=== PATIENT | female | born 1950 | race Caucasian/White ===

== ENCOUNTER → 2017-11-02 | Outpatient (CLI) | payer OTHER ==
[~2017-11-02] MED LIST: ACE3 PO; AML5; AMLO-101 PO; CYC10 PO; DIPH-740 PO; GAB300 PO; HCTZ25 PO; HYDR12.561 PO; LIS10 PO; LIS20 PO; LORA0.5T11 GT; MET50 PO; METO25TA91 PO; MYLL PO; OMEP-218 PO; ONDA4TAB PO; OXY40 PO; OXYC-944 PO; OXYIR PO; PAN40 PO; PREG25 PO; PRO25S PR; TIZ4 PO; VEN375 PO; ZOLP-350 PO
== END ==
LOC: LAB 12:58
PROVIDERS: ATTEND Specialist
DX: F11.20 Opioid dependence, uncomplicated (principal)
CPT/HCPCS: 80305

== ENCOUNTER → 2018-02-22 | Outpatient (CLI) | payer MEDICARE, OTHER ==
[~2018-02-22] MED LIST changes: +DIPH-741 PO; +DIPH0.5D12 IM; +DOCU100T19 PO; +DULO60CA7 PO; +FAMO20TA28 PO; +GABA-549 PO; +MAGN400T36 PO; +METO50TA19 PO; +PNEU0.5D3 IM; +SPIR25TA78 PO
[2018-02-22 15:53] LABS: PLATELET COUNT, AUTOMATED 223 K/uL (150-450)
== END ==
LOC: LAB 15:20
PROVIDERS: ATTEND Emergency Medicine
DX: I10 Essential (primary) hypertension (principal)
CPT/HCPCS: 36415; 82040; 82247; 82310; 82374; 82435; 82465; 82565; 82947; 83718; 84075; 84132; 84155; 84295; 84450; 84460; 84478; 84520; 85025

== ENCOUNTER → 2018-03-16 | Outpatient (CLI) | payer MEDICARE, OTHER ==
--- NOTE | 2018-03-16 15:56 | RADIOLOGY IMAGING REPORT ---
FACILITY: [facility] PATIENT NAME: PARVEEN MENDOZA : [id number] MR: [id number] V: [id number] EXAM DATE: ORDERING PHYSICIAN: JOSE SALGADO TECHNOLOGIST: Consuelo Lucas PROCEDURE:BILATERAL DIGITAL SCREENING MAMMOGRAM WITH CAD ASSISTED INTERPRETATION & 3D TOMOSYNTHESIS COMPARISON:This is the patient's baseline mammogram. INDICATIONS:breast cancer screening FINDINGS: Moderately dense fibroglandular tissue is seen throughout the breasts. There is no evidence of malignant appearing mass, malignant appearing calcifications or other secondary sign of malignancy in either breast. A pacemaker battery pack projects along the upper Left chest wall on the Left MLO view. DIAGNOSTIC CATEGORY 1--NEGATIVE. RECOMMENDATIONS: ROUTINE MAMMOGRAM AND CLINICAL EVALUATION. IMPRESSION: BIRADS 1: Negative. No significant abnormality is seen. Dictated by: Chelsea Cosme M.D. on 03/16/2018 at 15:38 Transcribed by: JOCY on 03/16/2018 at 15:51 Approved by: Chelsea Cosme M.D. on 03/16/2018 at 15:55 [facility]
--- NOTE | 2018-03-16 16:18 | RADIOLOGY IMAGING REPORT ---
[place] [facility] [place] NAME: Beata Langley : 1950 MR: [id number] V: [id number] EXAM DATE: ORDERING PHYSICIAN: JOSE SALGADO TECHNOLOGIST: Location: [facility] [place] Patient: Beata Langley : 1950 Visit/Account:[id number] Date of Sevice: 03/16/2018 DEXA Scan Clinical history: Asymptomatic postmenopausal estrogen deficiency. Comparison: None available. LUMBAR SPINE: The bone mineral density (BMD) measured from L1-L4 correlates with a Z-score 0.2 and a T-score of -1 which is Normal as defined by the World Health Organization. The corresponding risk of fracture in t he lumbar spine is 2 times increased compared with a young adult reference population. HIP: Bone mineral density (BMD) measured in the Left total hip region correlates with a Z-score 0.8 and a T-score of -0.2 which is Normal as defined by the World Health Organization. The corresponding risk of fracture in the hip is Not increased compared with a young adult reference population. T score l eft femoral neck -1 Bone mineral density (BMD) measured in the Femoral Neck region measures 0.899 g/cm2. Impression: 1. Lumbar spine: Normal. 2. Left Hip: Normal. 3. Femoral Neck: Bone Mineral Density is 0.899 g/cm2 The next DEXA scan of this patient should include the following sites: L1-L4 and the left hip. FRAX? WHO Fracture Risk Assessment Tool link: <http://www.shef.ac.uk/FRAX/tool.jsp?locationValue=9> PLEASE NOTE: 1) The World Health Organization defines low BMD as follows: T-score Normal > -1 Osteopenia < -1 and > -2.5 Osteoporosis < -2.5 without fractures Established osteoporosis < -2.5 with fractures 2) In general, you may wish to consider: Diagnosis Treatment Follow-up DEXA Normal BMD Prevention 2-3 years Osteopenia Prevention/therapy 1-2 years Osteoporosis Therapy Yearly 3) Fracture risk estimated from the T-score is more accurate for vertebral fractures (often spontane ous) than for hip fractures. Report Dictated By: Chelsea Cosme MD at 03/16/2018 4:13 PM Report E-Signed By: Chelsea Cosme MD at 03/16/2018 4:14 PM WSN:[email or web address]
== END ==
LOC: MAMO 01:23
PROVIDERS: ATTEND Emergency Medicine
DX: Z13.820 Encounter for screening for osteoporosis (principal); Z12.31 Encounter for screening mammogram for malignant neoplasm of breast; Z78.0 Asymptomatic menopausal state; Z95.0 Presence of cardiac pacemaker
CPT/HCPCS: 77063; 77067; 77080

== ENCOUNTER → 2018-04-15 | Outpatient (CLI) | payer MEDICARE ==
--- NOTE | 2018-04-15 12:19 | RADIOLOGY IMAGING REPORT ---
FACILITY: [facility] - [place] PATIENT NAME: Beata Langley : 1950 MR: [id number] V: [id number] EXAM DATE: ORDERING PHYSICIAN: JOSE SALGADO TECHNOLOGIST: Location: [facility] [place] Patient: Beata Langley : 1950 Visit/Account:[id number] Date of Sevice: 04/15/[address] scan without contrast HISTORY: Arachnoid cyst COMPARISONS: April 08, 2008 TECHNIQUE: Non-contrast head CT was performed with sagittal and coronal reformations. One of the following dose optimization techniques was utilized in the performance of this exam: autom ated exposure control; adjustment of the mA and/or kV according to patient size; or use of iterative reconstruction technique. Specific details can be referenced in the facility's radiology CT exam ope rational policy. FINDINGS: There is no intracranial hemorrhage, hydrocephalus or midline shift. The basal cisterns, phipps-white differentiation, and convexity sulci are maintained. Normal orbital soft tissues. Benign arachnoid cyst in the right lateral posterior fossa has slightly increased in transverse dimen mandi now measuring 1.2 cm, previously 1 cm, axial image 28. This measures 3.3 cm craniocaudad by 4.1 cm AP. Evaluation for change in size in the craniocaudad and AP planes is limited given lack of coron al or sagittal reformations on prior. The mastoid air cells are clear. The paranasal sinuses are clear. Chronic benign osseous protuberanc e emanating off the right parietal bone is unchanged. IMPRESSION: 1. No acute intracranial abnormality. 2. Benign arachnoid cyst in the right lateral posterior fossa has increased in size in the transverse dimension now measuring 1.2 cm, previously 1 cm. This exerts slight mass effect on the adjacent righ t cerebellum which has increased. The arachnoid cyst measures 3.3 cm craniocaudad by 4.1 cm AP dimension. Evaluation for interval cool ge in these dimensions is limited given lack of coronal or sagittal reformations on prior. The predom inant change in size of the cyst appears to be in the transverse dimension comparing axial images. Report Dictated By: Kash Linn MD at 04/15/2018 12:09 PM Report E-Signed By: Kash Linn MD at 04/15/2018 12:16 PM WSN:[email or web address]
== END ==
LOC: CT 07:03
PROVIDERS: ATTEND Emergency Medicine
DX: Z01.812 Encounter for preprocedural laboratory examination (principal); G93.0 Cerebral cysts
CPT/HCPCS: 36415; 70450; 82565

== ENCOUNTER → 2018-04-15 | Outpatient (CLI) | payer MEDICARE | LOC: LAB 10:49 | PROVIDERS: ATTEND Specialist | DX: F11.20 Opioid dependence, uncomplicated (principal) | CPT/HCPCS: 80305 ==

== ENCOUNTER → 2018-04-20 | Outpatient (CLI) | payer MEDICARE, OTHER ==
[~2018-04-20] MED LIST changes: -SPIR25TA78 PO; +SPIR25TA80 PO
[2018-04-20 16:02] LABS: PLATELET COUNT, AUTOMATED 262 K/uL (150-450)
--- NOTE | 2018-04-20 17:17 | RADIOLOGY IMAGING REPORT ---
FACILITY: [facility] PATIENT NAME: Beata Langley : 1950 MR: [id number] V: [id number] EXAM DATE: ORDERING PHYSICIAN: JOSE SALGADO TECHNOLOGIST: Location: [facility] - [place] Patient: Beata Langley : 1950 Visit/Account:[id number] Date of Sevice: 04/20/2018 EXAMINATION: Renal Ultrasound HISTORY: CKD. COMPARISON: None. FINDINGS: Right kidney: There is increased echogenicity of the renal cortical parenchyma, suggesting medical re nal disease. The right kidney measures slightly small in size at 7.7 cm in length. No cortical thinni ng. No hydronephrosis. Left kidney: There is increased echogenicity of the renal cortical parenchyma, suggesting medical re nal disease. The left kidney measures 8.4 cm in length. No cortical thinning or hydronephrosis. Bladder: Moderately well distended and morphologically unremarkable. Bilateral ureteral jets are vis ualized. Vessels: The segmentally visualized abdominal aorta and IVC are patent. IMPRESSION: 1. Both kidneys appear mildly echogenic, compatible with medical renal disease. 2. No hydronephrosis. 3. Kidneys measure slightly small in size, measuring 7.7 cm in length on the right and 8.4 cm in karen th on the left. Report Dictated By: Jamie Padilla MD at 04/20/2018 5:08 PM Report E-Signed By: Jamie Padilla MD at 04/20/2018 5:14 PM WSN:[id number]
== END ==
LOC: LAB 15:39
PROVIDERS: ATTEND Emergency Medicine
DX: R55 Syncope and collapse (principal); N18.9 Chronic kidney disease, unspecified; D64.9 Anemia, unspecified
CPT/HCPCS: 36415; 76705; 81001; 82040; 82247; 82310; 82374; 82435; 82565; 82947; 83540; 83550; 84075; 84132; 84155; 84295; 84443; 84450; 84460; 84484; 84520; 85025; 85379

== ENCOUNTER → 2018-04-20 | Outpatient (CLI) | payer MEDICARE, OTHER ==
--- NOTE | 2018-04-20 19:08 | EKG ---
[place] [facility] [place] NAME: PARVEEN MENDOZA : [id number] MR: [id number] V: [id number] EXAM DATE: ORDERING PHYSICIAN: JOSE SALGADO TECHNOLOGIST: WILBER Test Reason : SYNCOPE Blood Pressure : / mmHG Vent. Rate : 071 BPM Atrial Rate : 071 BPM P-R Int : 354 ms QRS Dur : 078 ms QT Int : 462 ms P-R-T Axes : -29 000 083 degrees QTc Int : 502 ms Atrial-paced rhythm with prolonged AV conduction Low voltage QRS Prolonged QT Abnormal ECG When compared with ECG of 05-AUG-2016 19:05, Previous ECG has undetermined rhythm, needs review T wave inversion no longer evident in Anterior leads Referred By: Confirmed By:
== END ==
LOC: RESP 15:41
PROVIDERS: ATTEND Emergency Medicine
DX: Z02.9 Encounter for administrative examinations, unspecified (principal)

== ENCOUNTER → 2018-04-25 | Outpatient (CLI) | payer MEDICARE | LOC: LAB 13:30 | PROVIDERS: ATTEND Emergency Medicine | DX: N18.9 Chronic kidney disease, unspecified (principal) | CPT/HCPCS: 36415; 82310; 82374; 82435; 82565; 82947; 84132; 84295; 84520 ==

== ENCOUNTER → 2018-06-14 | Outpatient (CLI) | payer MEDICARE, OTHER ==
[~2018-06-14] MED LIST changes: +ROSU10TA5 PO
--- NOTE | 2018-06-14 16:42 | RADIOLOGY IMAGING REPORT ---
FACILITY: [facility] PATIENT NAME: Beata Langley : 1950 MR: [id number] V: [id number] EXAM DATE: ORDERING PHYSICIAN: ALEJANDRO HAGAN TECHNOLOGIST: Location: [facility] Patient: Beata Langley : 1950 Visit/Account:[id number] Date of Sevice: 06/14/2018 ADDENDUM #1 A message was left for ALEJANDRO HAGAN at 06/14/2018 4:52 PM. Report Dictated By: Chelsea Cosme MD at 06/14/2018 4:52 PM Report E-Signed By: Chelsea Cosme MD at 06/14/2018 4:52 PM ORIGINAL REPORT Exam type: ANKLE 3 VIEW MIN LEFT History: Left lateral ankle pain fell on June 11, 2018 Comparison: None Findings: There is a very subtle oblique lucency traversing the distal metaphysis of the left fibula. This cou ld represent superimposed shadow versus a nondisplaced fracture. Ankle mortise appears intact. Ther e is moderate soft tissue swelling over the lateral aspect left ankle IMPRESSION: 1. Subtle oblique lucency traversing the distal metaphysis left fibula which could represent a super imposed shadow versus a nondisplaced fracture. There is moderate soft tissue swelling over the later al aspect of the ankle Report Dictated By: Chelsea Cosme MD at 06/14/2018 4:36 PM Report E-Signed By: Chelsea Cosme MD at 06/14/2018 4:38 PM WSN:[email or web address]
== END ==
LOC: RAD 15:54
PROVIDERS: ATTEND Nurse Practitioner Primary Care
DX: M25.472 Effusion, left ankle (principal); R93.6 Abnormal findings on diagnostic imaging of limbs

== ENCOUNTER → 2018-08-12 | Outpatient (CLI) | payer MEDICARE ==
--- NOTE | 2018-08-12 15:50 | RADIOLOGY IMAGING REPORT ---
FACILITY: [facility] - [place] PATIENT NAME: Beata Langley : 1950 MR: [id number] V: [id number] EXAM DATE: ORDERING PHYSICIAN: QASIM RESTREPO TECHNOLOGIST: Location: [facility] Patient: Beata Langley : 1950 Visit/Account:[id number] Date of Sevice: 08/12/2018 EXAMINATION: Renal ultrasound 08/12/2018 1:00 PM HISTORY: C KV. COMPARISON STUDIES: none FINDINGS: Kidneys: Right kidney- 8.1 x 4.8 x 4.0 cm, normal parenchymal thickness and echogenicity for age. Left kidney- 8.0 x 4.4 x 4.4 cm, normal parenchymal thickness and echogenicity for age. Uniform and symmetric blood flow in each kidney by Doppler ultrasound. Hydronephrosis: none Bladder: Under 4 mL in the bladder post void. Abdominal aorta and IVC: Patent by Doppler ultrasound IMPRESSION: 1. Echogenicity of renal cortex is probably within normal range for age although is increased and ma y reflect chronic medical renal disease. 2. Minimal postvoid residual in the bladder of questionable significance. Report Dictated By: Jaylen Childers MD at 08/12/2018 3:43 PM Report E-Signed By: Jaylen Childers MD at 08/12/2018 3:45 PM WSN:[email or web address]
== END ==
LOC: US 08-09 01:26
PROVIDERS: ATTEND Internal Medicine Nephrology
DX: N18.3 Chronic kidney disease, stage 3 (moderate) (principal)
CPT/HCPCS: 76705

== ENCOUNTER → 2018-09-12 | Outpatient (CLI) | payer MEDICARE ==
[2018-09-12 16:34] LABS: PLATELET COUNT, AUTOMATED 255 K/uL (150-450)
== END ==
LOC: LAB 15:47
PROVIDERS: ATTEND Internal Medicine Nephrology
DX: Z13.9 Encounter for screening, unspecified (principal); N18.3 Chronic kidney disease, stage 3 (moderate); D64.9 Anemia, unspecified
CPT/HCPCS: 36415; 82040; 82247; 82310; 82374; 82435; 82550; 82565; 82570; 82728; 82947; 83540; 83550; 83970; 84075; 84100; 84132; 84155; 84156; 84295; 84443; 84450; 84460; 84520; 85025

== ENCOUNTER 2018-10-27 12:48 | Outpatient (RCR) | payer MEDICARE ==
[2018-09-29] MEDS: IRON SUCROSE 100 MG/5 ML VIAL IVP PRN (13:36)
[2018-09-29] MEDS: NS(*) 0.9% 100 ML BAG 100 ML IVPB PRN (13:37)
[2018-09-29] MEDS: LIDOCAINE/SOD BICARB 8.4% SYR ID PRN (13:40)
[2018-09-29 13:48] VITALS: BP 120/90
[2018-09-29 14:28] VITALS: BP 111/80
[2018-10-06] MEDS: LIDOCAINE/SOD BICARB 8.4% SYR ID PRN (12:54)
[2018-10-06] MEDS: IRON SUCROSE 100 MG/5 ML VIAL IVP PRN (12:55)
[2018-10-06] MEDS: NS(*) 0.9% 100 ML BAG 100 ML IVPB PRN (12:55)
[2018-10-06 13:03] VITALS: BP 122/87
[2018-10-06 13:31] VITALS: BP 121/72
[2018-10-13 13:11] VITALS: BP 119/95
[2018-10-13] MEDS: NS(*) 0.9% 100 ML BAG 100 ML IVPB PRN (13:28)
[2018-10-13] MEDS: IRON SUCROSE 100 MG/5 ML VIAL IVP PRN (13:28)
[2018-10-13] MEDS: LIDOCAINE/SOD BICARB 8.4% SYR ID PRN (13:28)
[2018-10-13 13:51] VITALS: BP 101/74
[2018-10-20 13:00] VITALS: BP 125/96
[2018-10-20] MEDS: NS(*) 0.9% 100 ML BAG 100 ML IVPB PRN (13:22)
[2018-10-20] MEDS: LIDOCAINE/SOD BICARB 8.4% SYR ID PRN (13:22)
[2018-10-20 13:45] VITALS: BP 124/72
[~2018-10-27 12:48] MED LIST changes: +DEXTROSE 5%(*) 100 ML BAG 100 ML IVPB PRN; +IRON SUCROSE 100 MG/5 ML VIAL 200 MG in NS(*) 0.9% 100 ML BAG 100 ML IVPB ONE
[2018-10-27] MEDS: LIDOCAINE/SOD BICARB 8.4% SYR ID PRN (13:19)
[2018-10-27] MEDS: NS(*) 0.9% 100 ML BAG 100 ML IVPB PRN (13:19)
[2018-10-27] MEDS: IRON SUCROSE 100 MG/5 ML VIAL IVP PRN (13:19)
[2018-10-27 13:23] VITALS: BP 180/120
[2018-10-27 13:44] VITALS: BP 200/110
[2018-11-09] MEDS ORDERED: LOSA25TA57 PO (14:43)
== END 2018-11-09 09:32 | disposition home or self-care (01) ==
LOC: SPU 12:48
PROVIDERS: ATTEND Internal Medicine Nephrology
DX: D50.9 Iron deficiency anemia, unspecified (principal); N18.3 Chronic kidney disease, stage 3 (moderate); G90.9 Disorder of the autonomic nervous system, unspecified; E87.1 Hypo-osmolality and hyponatremia; I12.9 Hypertensive chronic kidney disease with stage 1 through stage 4 chronic kidney disease, or unspecified chronic kidney disease
CPT/HCPCS: 96365; 96374; J1756; J7050

== ENCOUNTER → 2018-11-09 | Outpatient (CLI) | payer MEDICARE, OTHER ==
[~2018-11-09] MED LIST changes: -DEXTROSE 5%(*) 100 ML BAG 100 ML IVPB PRN; -IRON SUCROSE 100 MG/5 ML VIAL 200 MG in NS(*) 0.9% 100 ML BAG 100 ML IVPB ONE; +LOSA25TA57 PO
[2018-11-09 15:09] LABS: PLATELET COUNT, AUTOMATED 213 K/uL (150-450)
== END ==
LOC: LAB 14:39
PROVIDERS: ATTEND Emergency Medicine
DX: D64.9 Anemia, unspecified (principal); N18.9 Chronic kidney disease, unspecified
CPT/HCPCS: 36415; 82310; 82374; 82435; 82465; 82565; 82607; 82728; 82947; 83540; 83550; 83718; 84132; 84295; 84478; 84520; 85025

== ENCOUNTER → 2018-11-10 | Outpatient (CLI) | payer MEDICARE | LOC: LAB 10:11 | PROVIDERS: ATTEND Emergency Medicine | DX: E87.5 Hyperkalemia (principal) | CPT/HCPCS: 36415; 82310; 82374; 82435; 82565; 82947; 84132; 84295; 84520 ==

== ENCOUNTER 2019-01-28 09:44 | Emergency (ER) | payer MEDICARE ==
[~2019-01-28 09:44] MED LIST changes: -OXYC-823 PO
--- NOTE | 2019-01-28 09:50 | ER Report ---
History and Physical Time Seen By MD: 09:49 HPI/ROS CHIEF COMPLAINT: Fall, neck pain HISTORY OF PRESENT ILLNESS: Patient is a 69-year-old female here status post fall last night at approximately 2245. Patient reportedly fell off the toilet and had an unknown down time. Patient does complain of lateral neck pain, occipital tenderness. Patient is neurovascularly intact in all extremities at time of reevaluation with good strength, sensory neural examination. Patient does have a history significant for "pots" in which the patient has intermittent syncopal episodes, fluctuating hypotension and hypertension which is her baseline. Patient is afebrile, otherwise hemodynamically stable at time of evaluation. Cervical collar in place. REVIEW OF SYSTEMS: Constitutional: No fever, no chills. Eyes: No discharge. No diplopia ENT: No sore throat. No loose dentition. + Midline and left lateral cervical tenderness Cardiovascular: No chest pain, no palpitations. Respiratory: No cough, no shortness of breath. Gastrointestinal: No abdominal pain, no vomiting. Genitourinary: No hematuria. Musculoskeletal: No back pain. Skin: No rashes. Neurological: + headache. No focal neurological deficits and extremities, paresthesias Allergies: Coded Allergies: Soap (Verified Allergy, Unknown, 08/05/16) povidone-iodine (Verified Allergy, Unknown, 08/05/16) Home Meds Active Scripts Rosuvastatin Calcium (Rosuvastatin Calcium) 10 Mg Tablet, 1 TAB PO DAILY, #30 TAB 11 Refills Prov:JOSE SALGADO MD 05/10/18 Reported Medications Oxycodone Hcl (OXYCONTIN) 10 Mg Tab.er.12h, 10 MG PO Q3-4H, TAB 01/28/19 Cyanocobalamin (Vitamin B-12) (Vitamin B-12) 1,000 Mcg Capsule, 1 CAP PO DAILY 11/17/18 Losartan Potassium (LOSARTAN POTASSIUM) 25 Mg Tablet, 25 MG PO QDAY 11/09/18 Magnesium Oxide (MAGNESIUM OXIDE) 400 Mg Tablet, 1.5 TAB PO DAILY 02/22/18 Diphenhydramine Hcl (BENADRYL ALLERGY) 25 Mg Tablet, 25 MG PO Q4H PRN for PRN, TAB 02/22/18 Docusate Sodium (STOOL SOFTENER) 100 Mg Tablet, 1-2 TAB PO DAILY 02/22/18 Spironolactone (SPIRONOLACTONE) 25 Mg Tablet, 25 MG PO DAILY, TAB 02/22/18 Metoprolol Succinate (METOPROLOL SUCCINATE) 50 Mg Tab.er.24h, 1 TAB PO DAILY, TAB 02/22/18 Duloxetine HCl (Duloxetine HCl) 60 Mg Capsule.dr, 1 CAP PO DAILY 02/22/18 Gabapentin (GABAPENTIN) 300 Mg Capsule, 300 MG PO TID, CAPSULE 02/22/18 Pantoprazole Sod (Protonix) 40 Mg Tabec, 40 MG PO BID, 0 Refills 10/10/08 Tizanidine Hcl (Zanaflex) 4 Mg Tab, 4 MG PO QID 1 TAKE 4 TIMES DAILY NEEDED FOR MUSCLE SPASM 05/12/08 Discontinued Reported Medications Famotidine (PEPCID) 20 Mg Tablet, 20 MG PO QDAY PRN for PRN, #10 TAB 02/22/18 Hx Smoking: No Smoking Status: Never Smoker Constitutional Vital Sign - Last 24 Hours 01/28/19 09:48 Pulse 72 Resp 16 B/P (MAP) 147/106 Pulse Ox 96 O2 Delivery Room Air Physical Exam General Appearance: The patient is alert, has no immediate need for airway protection and no signs of toxicity. No acute distress Eyes: Pupils equal and round no pallor or injection. ENT, Mouth: Mucous membranes are moist. Respiratory: There are no retractions, lungs are clear to auscultation. Cardiovascular: Regular rate and rhythm. Gastrointestinal: Abdomen is soft and non tender, no masses, bowel sounds normal. Neurological: No focal neurological deficits, moving all extremities with good strength, sensory exam intact, alert and oriented Skin: Warm and dry, no rashes. Musculoskeletal: Neck is supple non tender. Extremities are nontender, nonswollen and have full range of motion. DIFFERENTIAL DIAGNOSIS: After history and physical exam differential diagnosis was considered for concussion, contusion, musculoskeletal strain, fracture, dislocation Medical Decision Making Data Points Result Diagram: 01/28/1955 01/28/1955 Laboratory Hematology Test 01/28/19 09:55 Red Blood Count 4.65 M/uL (4.17-5.56) Mean Corpuscular Volume 94.0 fL (80.0-96.0) Mean Corpuscular Hemoglobin 31.6 pg (26.0-33.0) Mean Corpuscular Hemoglobin Concent 33.6 g/dL (32.0-36.0) Red Cell Distribution Width 13.6 % (11.5-14.5) Mean Platelet Volume 7.3 fL (7.2-11.1) Neutrophils (%) (Auto) 57.0 % (39.4-72.5) Lymphocytes (%) (Auto) 29.8 % (17.6-49.6) Monocytes (%) (Auto) 9.4 % (4.1-12.4) Eosinophils (%) (Auto) 2.5 % (0.4-6.7) Basophils (%) (Auto) 1.3 % (0.3-1.4) Nucleated RBC Relative Count (auto) 0.1 /100WBC Neutrophils # (Auto) 3.6 K/uL (2.0-7.4) Lymphocytes # (Auto) 1.9 K/uL (1.3-3.6) Monocytes # (Auto) 0.6 K/uL (0.3-1.0) Eosinophils # (Auto) 0.2 K/uL (0.0-0.5) Basophils # (Auto) 0.1 K/uL (0.0-0.1) Nucleated RBC Absolute Count (auto) 0.00 K/uL Sodium Level 128 mmol/L (137-145) Potassium Level 5.8 mmol/L (3.5-5.0) Chloride Level 95 mmol/L (98-107) Carbon Dioxide Level 25 mmol/L (22-31) Blood Urea Nitrogen 34 mg/dl (7-18) Creatinine 2.70 mg/dl (0.52-1.04) Glomerular Filtration Rate Calc 17.5 Random Glucose 98 mg/dl (75-110) Calcium Level 9.0 mg/dl (8.4-10.2) Total Bilirubin 0.7 mg/dl (0.2-1.3) Aspartate Amino Transf (AST/SGOT) 45 U/L (0-35) Alanine Aminotransferase (ALT/SGPT) 30 U/L (0-56) Alkaline Phosphatase 78 U/L (0-126) B-Type Natriuretic Peptide 129 pg/ml (0-100) Total Protein 7.2 g/dl (6.3-8.2) Albumin 4.3 g/dl (3.5-5.0) Chemistry Test 01/28/19 09:55 White Blood Count 6.2 k/uL (4.5-11.0) Red Blood Count 4.65 M/uL (4.17-5.56) Hemoglobin 14.7 g/dL (12.0-16.0) Hematocrit 43.7 % (34.0-47.0) Mean Corpuscular Volume 94.0 fL (80.0-96.0) Mean Corpuscular Hemoglobin 31.6 pg (26.0-33.0) Mean Corpuscular Hemoglobin Concent 33.6 g/dL (32.0-36.0) Red Cell Distribution Width 13.6 % (11.5-14.5) Platelet Count 178 K/uL (150-450) Mean Platelet Volume 7.3 fL (7.2-11.1) Neutrophils (%) (Auto) 57.0 % (39.4-72.5) Lymphocytes (%) (Auto) 29.8 % (17.6-49.6) Monocytes (%) (Auto) 9.4 % (4.1-12.4) Eosinophils (%) (Auto) 2.5 % (0.4-6.7) Basophils (%) (Auto) 1.3 % (0.3-1.4) Nucleated RBC Relative Count (auto) 0.1 /100WBC Neutrophils # (Auto) 3.6 K/uL (2.0-7.4) Lymphocytes # (Auto) 1.9 K/uL (1.3-3.6) Monocytes # (Auto) 0.6 K/uL (0.3-1.0) Eosinophils # (Auto) 0.2 K/uL (0.0-0.5) Basophils # (Auto) 0.1 K/uL (0.0-0.1) Nucleated RBC Absolute Count (auto) 0.00 K/uL Glomerular Filtration Rate Calc 17.5 Calcium Level 9.0 mg/dl (8.4-10.2) Total Bilirubin 0.7 mg/dl (0.2-1.3) Aspartate Amino Transf (AST/SGOT) 45 U/L (0-35) Alanine Aminotransferase (ALT/SGPT) 30 U/L (0-56) Alkaline Phosphatase 78 U/L (0-126) B-Type Natriuretic Peptide 129 pg/ml (0-100) Total Protein 7.2 g/dl (6.3-8.2) Albumin 4.3 g/dl (3.5-5.0) EKG/Imaging EKG Interpretation PATIENT NAME: PARVEEN MENDOZA : [id number] MR: [id number] V: [id number] EXAM DATE: ORDERING PHYSICIAN: TATIANNA VALENZUELA TECHNOLOGIST: YOBANY Veloz Reason : SUNCOPE Blood Pressure : / mmHG Vent. Rate : 140 BPM Atrial Rate : 070 BPM P-R Int : 000 ms QRS Dur : 168 ms QT Int : 290 ms P-R-T Axes : 000 056 -73 degrees QTc Int : 442 ms Demand pacemaker, interpretation is based on intrinsic rhythm Wide QRS tachycardia with premature supraventricular complexes and premature ventricular complexes or fusion complexes Left bundle branch block Abnormal ECG When compared with ECG of 20-APR-2018 14:19, Wide QRS tachycardia has replaced Electronic atrial pacemaker Vent. rate has increased BY 69 BPM Referred By: BIANCA Confirmed By: Imaging CT Head without contrast and CT Cervical spine: Indication: Fall Comparison: 04/15/2018 Technique: CT head: Axial CT images were obtained through the brain from the skull base to the vertex without administration of IV contrast. Reformatted coronal and sagittal images were also obtained. Technique: CT cervical spine: Axial CT imaging of the cervical spine was performed. 2-D sagittal and coronal CT reformats were also obtained. One of the following dose optimization techniques was utilized in the performance of this exam: automated exposure control; adjustment of the mA and/or kV according to the patient's size; or use of an iterative reconstruction technique. Specific details can be referenced in the facility's radiology CT exam operational policy. FINDINGS: CT head: No evidence of mass, mass effect, or midline shift. No acute intracranial hemorrhage or acute territorial infarction. There are mild periventricular deep white matter chronic ischemic changes. The skull is intact. The visualized paranasal sinuses and mastoid air cells are clear. CT cervical spine: There is a fracture involving the ring of the C2 vertebral body. Along the left aspect of the C2 vertebral body there is a fracture through the uncinate process extending into the lamina with mild displacement present. On the right side of the vertebral body, there is a fracture present through the transverse foramen. Within the spine canal along the left epidural space, spinal stimulators are noted. The prevertebral soft tissues appear unremarkable. The vertebral body heights are well maintained. Disc spaces appear unremarkable. IMPRESSION: 1. No acute intracranial abnormality. 2. C2 fracture involving the posterior ring with mild displacement of the left uncinate process and right transverse foramen ED Course/Re-evaluation ED Course Patient is a 69-year-old female here with complaints of a fall while in the bathroom last night at approximately 2245. Patient does have a history of intermittent syncopal episodes which she attributes to "pots". Patient was immobilized in a cervical collar at time of evaluation. CT imaging of the head and C-spine was completed and identified a C2 posterior ring fracture through the uncinate process. Patient was also found to have worsening acute on chronic CKD. As compared to a month ago, creatinine previously was 2 and is now 2.7 likely prerenal etiology. Patient was given a liter normal saline for hydration. I discussed the patient with [facility] trauma surgeon Dr. Clarke who agreed to transfer. Patient was hemodynamically stable at time of transport. Decision to Disposition Date: Jan 28, 2019 Decision to Disposition Time: 11:37 Depart Departure Latest Vital Signs Vital Signs Date Time Temp Pulse Resp B/P (MAP) Pulse Ox O2 Delivery O2 Flow Rate FiO2 01/28/19 09:48 72 16 147/106 96 Room Air Impression: Primary Impression: Closed cervical spine fracture Additional Impressions: Syncope Acute renal failure Condition: Improved Disposition: HOME OR SELF-CARE Referrals: JOSE SALGADO MD (PCP) Problem Qualifiers TATIANNA VALENZUELA DO Jan 28, 2019 09:50
--- NOTE | 2019-01-28 10:06 | EKG ---
[facility] PATIENT NAME: PARVEEN MENDOZA : [id number] MR: [id number] V: [id number] EXAM DATE: ORDERING PHYSICIAN: TATIANNA VALENZUELA TECHNOLOGIST: YOBANY Veloz Reason : SUNCOPE Blood Pressure : / mmHG Vent. Rate : 140 BPM Atrial Rate : 070 BPM P-R Int : 000 ms QRS Dur : 168 ms QT Int : 290 ms P-R-T Axes : 000 056 -73 degrees QTc Int : 442 ms Demand pacemaker, interpretation is based on intrinsic rhythm Prolonged AV conduction Abnormal ECG When compared with ECG of 20-APR-2018 14:19, Confirmed by LATASHA COTTON ([id number]) on 01/28/2019 2:38:58 PM Referred By: BIANCA Confirmed By:LATASHA COTTON
[2019-01-28 10:07] LABS: PLATELET COUNT, AUTOMATED 178 K/uL (150-450)
[2019-01-28] MEDS ORDERED: OXYC-823 PO (10:08)
[2019-01-28] MEDS ORDERED: NS(*) 0.9% 1000 ML BAG 1,000 ML IV ONE (10:20)
--- NOTE | 2019-01-28 10:48 | RADIOLOGY IMAGING REPORT ---
FACILITY: [facility] - [place] PATIENT NAME: Beata Langley : 1950 MR: [id number] V: [id number] EXAM DATE: ORDERING PHYSICIAN: TATIANNA VALENZUELA TECHNOLOGIST: Location: [facility] [place] Patient: Beata Langley : 1950 Visit/Account:[id number] Date of Sevice: 01/28/2019 CT Head without contrast and CT Cervical spine: Indication: Fall Comparison: 04/15/2018 Technique: CT head: Axial CT images were obtained through the brain from the skull base to the verte x without administration of IV contrast. Reformatted coronal and sagittal images were also obtained. Technique: CT cervical spine: Axial CT imaging of the cervical spine was performed. 2-D sagittal and coronal CT reformats were also obtained. One of the following dose optimization techniques was utilized in the performance of this exam: autom ated exposure control; adjustment of the mA and/or kV according to the patient's size; or use of an i terative reconstruction technique. Specific details can be referenced in the facility's radiology CT exam operational policy. FINDINGS: CT head: No evidence of mass, mass effect, or midline shift. No acute intracranial hemorrhage or acute territorial infarction. There are mild periventricular deep white matter chronic ischemic changes. The skull is intact. The visualized paranasal sinuses and mastoid air cells are clear. CT cervical spine: There is a fracture involving the ring of the C2 vertebral body. Along the left aspect of the C2 vert ebral body there is a fracture through the uncinate process extending into the lamina with mild displ acement present. On the right side of the vertebral body, there is a fracture present through the tra nsverse foramen. Within the spine canal along the left epidural space, spinal stimulators are noted. The prevertebral soft tissues appear unremarkable. The vertebral body heights are well maintained. Disc spaces appear unremarkable. IMPRESSION: 1. No acute intracranial abnormality. 2. C2 fracture involving the posterior ring with mild displacement of the left uncinate process and r ight transverse foramen Results were discussed with TATIANNA VALENZUELA at 01/28/2019 10:43 AM. Report Dictated By: Leon Shipley at 01/28/2019 10:32 AM Report E-Signed By: Leon Shipley at 01/28/2019 10:43 AM WSN:[id number]
--- NOTE | 2019-01-28 10:48 | RADIOLOGY IMAGING REPORT ---
FACILITY: [facility] - [place], [place] PATIENT NAME: Beata Langley : 1950 MR: [id number] V: [id number] EXAM DATE: ORDERING PHYSICIAN: TATIANNA VALENZUELA TECHNOLOGIST: Location: [facility] Patient: Beata Langley : 1950 Visit/Account:[id number] Date of Sevice: 01/28/2019 CT Head without contrast and CT Cervical spine: Indication: Fall Comparison: 04/15/2018 Technique: CT head: Axial CT images were obtained through the brain from the skull base to the verte x without administration of IV contrast. Reformatted coronal and sagittal images were also obtained. Technique: CT cervical spine: Axial CT imaging of the cervical spine was performed. 2-D sagittal and coronal CT reformats were also obtained. One of the following dose optimization techniques was utilized in the performance of this exam: autom ated exposure control; adjustment of the mA and/or kV according to the patient's size; or use of an i terative reconstruction technique. Specific details can be referenced in the facility's radiology CT exam operational policy. FINDINGS: CT head: No evidence of mass, mass effect, or midline shift. No acute intracranial hemorrhage or acute territorial infarction. There are mild periventricular deep white matter chronic ischemic changes. The skull is intact. The visualized paranasal sinuses and mastoid air cells are clear. CT cervical spine: There is a fracture involving the ring of the C2 vertebral body. Along the left aspect of the C2 vert ebral body there is a fracture through the uncinate process extending into the lamina with mild displ acement present. On the right side of the vertebral body, there is a fracture present through the tra nsverse foramen. Within the spine canal along the left epidural space, spinal stimulators are noted. The prevertebral soft tissues appear unremarkable. The vertebral body heights are well maintained. Disc spaces appear unremarkable. IMPRESSION: 1. No acute intracranial abnormality. 2. C2 fracture involving the posterior ring with mild displacement of the left uncinate process and r ight transverse foramen Results were discussed with TATIANNA VALENZUELA at 01/28/2019 10:43 AM. Report Dictated By: Leon Shipley at 01/28/2019 10:32 AM Report E-Signed By: Leon Shipley at 01/28/2019 10:43 AM WSN:[id number]
[2019-01-28 12:20] VITALS: BP 133/100
[2019-01-28] MEDS ORDERED: fentaNYL CITR 100 MCG/2 ML AMP IVP ONE (12:40)
== END 2019-01-28 12:55 | disposition short-term general hospital (02) ==
LOC: ER 10:01
DX: S12.100A Unspecified displaced fracture of second cervical vertebra, initial encounter for closed fracture (principal); N17.9 Acute kidney failure, unspecified; W18.11XA Fall from or off toilet without subsequent striking against object, initial encounter
CPT/HCPCS: 70450; 72125; 83880; 85025; 93005; 96361; 96374; 99285; J3010; J7030; 82040; 82247; 82310; 82374; 82435; 82565; 82947; 84075; 84132; 84155; 84295; 84450; 84460; 84520

== ENCOUNTER → 2019-01-28 | Outpatient (CLI) | payer MEDICARE ==
[~2019-01-28] MED LIST changes: +CYAN100058 PO; -DIPH0.5D12 IM; +DIPH0.5S2 IM; +OXYC-823 PO
== END ==
LOC: AMB 12:36
PROVIDERS: ATTEND Nurse Practitioner
DX: S12.100A Unspecified displaced fracture of second cervical vertebra, initial encounter for closed fracture (principal)
CPT/HCPCS: A0425; A0426

== ENCOUNTER → 2019-04-19 | Outpatient (CLI) | payer MEDICARE, OTHER ==
[~2019-04-19] MED LIST changes: +OXYC-823 PO
== END ==
LOC: LAB 14:50
PROVIDERS: ATTEND Emergency Medicine
DX: G90.9 Disorder of the autonomic nervous system, unspecified (principal); E53.8 Deficiency of other specified B group vitamins; I10 Essential (primary) hypertension
CPT/HCPCS: 36415; 81001; 82310; 82374; 82435; 82565; 82607; 82947; 83735; 84132; 84295; 84520

== ENCOUNTER → 2019-04-26 | Outpatient (CLI) | payer MEDICARE ==
[~2019-04-26] MED LIST changes: +CYAN250T15 PO
== END ==
LOC: RESP 01:09
PROVIDERS: ATTEND Emergency Medicine
DX: R55 Syncope and collapse (principal)
CPT/HCPCS: 95819

== ENCOUNTER → 2019-05-08 | Outpatient (CLI) | payer MEDICARE ==
--- NOTE | 2019-05-08 14:23 | RADIOLOGY IMAGING REPORT ---
FACILITY: [facility] - [place] PATIENT NAME: Beata Langley : 1950 MR: [id number] V: [id number] EXAM DATE: ORDERING PHYSICIAN: HENRIK HAGER TECHNOLOGIST: Location: [facility] - [place] Patient: Beata Langley : 1950 Visit/Account:[id number] Date of Sevice: 05/08/2019 3 views cervical spine Indication: Closed Nondisplaced fracture of C2. Comparison: CT cervical spine dated January 28, 2019. Findings: There is a nondisplaced anterior/inferior corner fracture of C2, retrospectively present and grossly unchanged. Fracture through the left aspect of the C2 vertebral body demonstrates new 2 mm distraction and one-2 mm inferior displacement of the fracture fragment. The right-sided fracture is not well seen. No acute fractures identified. The prevertebral soft tissues are within normal limits. The odontoid is unremarkable. The vertebral body heights are well maintained. One-2 mm anterolisthesis of C2 on C3, unchanged. No additional spondylolisthesis. Multilevel mild/moderate degenerative disc disease, worst at C4-C5 and C5-C6. Note is made of spinal stimulator wires. IMPRESSION: 1. Fracture through the left aspect of the C2 vertebral body demonstrates new 2 mm distraction and 1 -2 mm anterior displacement of the fracture fragment. 2. Note is made of a nondisplaced anterior/inferior corner fracture of the C2 vertebral body which i s retrospectively present and unchanged. 3. Fracture involving the right aspect of the C2 vertebral body is not well visualized with radiogra ph. 4. Minimal 1-2 mm anterolisthesis of C2 on C3, unchanged. Report Dictated By: Kash Norman MD at 05/08/2019 2:01 PM Report E-Signed By: Kash Norman MD at 05/08/2019 2:14 PM WSN:[email or web address]
== END ==
LOC: RAD 12:49
PROVIDERS: ATTEND Neurological Surgery
DX: S12.191D Other nondisplaced fracture of second cervical vertebra, subsequent encounter for fracture with routine healing (principal)
CPT/HCPCS: 72040

== ENCOUNTER 2019-05-11 15:37 | Inpatient (IN) | payer MEDICARE ==
[~2019-05-11] VITALS: Ht 162.6 cm; Wt 76.2 kg
[~2019-05-11 15:37] MED LIST changes: -ACET-2007 PO; -MELA10TA2 PO
[2019-05-11] MEDS ORDERED: NS(*) 0.9% 1000 ML BAG 1,000 ML IV ONE ×2 (15:52→21:15)
[2019-05-11] MEDS ORDERED: LORazepam 2 MG/ML VIAL IVP ONE ×2 (15:55→18:20)
--- NOTE | 2019-05-11 16:00 | ER Report ---
History and Physical Time Seen By MD: 15:46 HPI/ROS CHIEF COMPLAINT: Altered mental status HISTORY OF PRESENT ILLNESS: 69-year-old female patient presents to emergency room with complaint of altered mental status. The patient's states that when he returned home from work that he found her altered. He states that she had been taking Zanaflex for her neck pain, she had a recent fracture of C2. She apparently has run out, she also had been taking pain medication for a number of years. She is no longer taking the pain medication. He believes that she may have been having significant amounts pain and got into tackle thin which he had. He states that she may have taken four tablets. The bottle was written for 30 tablets, however there only 20 tablets in the bottle. Bottle was dated 2015. REVIEW OF SYSTEMS: Respiratory: No cough, no dyspnea. Cardiovascular: No chest pain, no palpitations. Gastrointestinal: No vomiting, no abdominal pain. Musculoskeletal: No back pain. Allergies: Coded Allergies: Soap (Verified Allergy, Unknown, 08/05/16) povidone-iodine (Verified Allergy, Unknown, 08/05/16) Home Meds Active Scripts Rosuvastatin Calcium (Rosuvastatin Calcium) 10 Mg Tablet, 1 TAB PO DAILY, #30 TAB 11 Refills Prov:JOSE SALGADO MD 05/10/18 Reported Medications Cyanocobalamin (Vitamin B-12) (VITAMIN B-12) 250 Mcg Tablet, 250 MCG PO DAILY 04/25/19 Losartan Potassium (LOSARTAN POTASSIUM) 25 Mg Tablet, 25 MG PO QDAY 11/09/18 Diphenhydramine Hcl (BENADRYL ALLERGY) 25 Mg Tablet, 25 MG PO Q4H PRN for PRN, TAB 02/22/18 Docusate Sodium (STOOL SOFTENER) 100 Mg Tablet, 1-2 TAB PO DAILY 02/22/18 Spironolactone (SPIRONOLACTONE) 25 Mg Tablet, 25 MG PO QODAY, TAB 02/22/18 Metoprolol Succinate (METOPROLOL SUCCINATE) 50 Mg Tab.er.24h, 1 TAB PO DAILY, TAB 02/22/18 Duloxetine HCl (Duloxetine HCl) 60 Mg Capsule.dr, 1 CAP PO DAILY 02/22/18 Gabapentin (GABAPENTIN) 300 Mg Capsule, 300 MG PO TID, CAPSULE 02/22/18 Pantoprazole Sod (Protonix) 40 Mg Tabec, 40 MG PO BID, 0 Refills 10/10/08 Tizanidine Hcl (Zanaflex) 4 Mg Tab, 4 MG PO QID 1 TAKE 4 TIMES DAILY NEEDED FOR MUSCLE SPASM 05/12/08 Past Medical/Surgical History Patient has a past medical history of hyperlipidemia, hypertension, autonomic dysfunction, thoracic, syndrome, pneumonia, sleep apnea, chronic renal failure, hyperparathyroidism, anemia. Patient has a surgical history of spinal surgery, thoracic outlet revision 7, EGD, hysterectomy, bilateral total joint replacement, bilateral first rib removed, right foot fracture repair. Reviewed Nurses Notes: Yes Hx Smoking: No Smoking Status: Never Smoker Constitutional Vital Sign - Last 24 Hours 05/11/19 15:43 Temp 97.8 Pulse 84 Resp 24 B/P (MAP) 212/116 Pulse Ox 92 O2 Delivery Room Air Physical Exam General Appearance: The patient is alert, has no immediate need for airway protection and no current signs of toxicity. Patient is flailing around in the bed, stating that she hurts. The patient is having personal movement. Respiratory: Chest is non tender, lungs are clear to auscultation. Cardiac: regular rate and rhythm Gastrointestinal: Abdomen is soft and non tender, no masses, bowel sounds normal. Musculoskeletal: Neck: Neck is supple and non tender. Extremities have full range of motion and are non tender. Skin: No rashes or lesions. DIFFERENTIAL DIAGNOSIS: After history and physical exam differential diagnosis was considered for altered mental status including but not limited to hypoglycemia, infectious process, electrolyte abnormality, head injury and intoxicants. Medical Decision Making Data Points Result Diagram: 05/11/19 1552 05/11/19 1552 Laboratory Hematology Test 05/11/19 15:52 White Blood Count 13.0 k/uL (4.5-11.0) H Red Blood Count 5.08 M/uL (4.17-5.56) Hemoglobin 17.2 g/dL (12.0-16.0) H Hematocrit 48.6 % (34.0-47.0) H Mean Corpuscular Volume 95.6 fL (80.0-96.0) Mean Corpuscular Hemoglobin 33.9 pg (26.0-33.0) H Mean Corpuscular Hemoglobin Concent 35.5 g/dL (32.0-36.0) Red Cell Distribution Width 13.6 % (11.5-14.5) Platelet Count 273 K/uL (150-450) Mean Platelet Volume 7.4 fL (7.2-11.1) Neutrophils (%) (Auto) 83.7 % (39.4-72.5) H Lymphocytes (%) (Auto) 11.0 % (17.6-49.6) L Monocytes (%) (Auto) 4.3 % (4.1-12.4) Eosinophils (%) (Auto) 0.1 % (0.4-6.7) L Basophils (%) (Auto) 0.9 % (0.3-1.4) Nucleated RBC Relative Count (auto) 0.3 /100WBC Neutrophils # (Auto) 10.9 K/uL (2.0-7.4) H Lymphocytes # (Auto) 1.4 K/uL (1.3-3.6) Monocytes # (Auto) 0.6 K/uL (0.3-1.0) Eosinophils # (Auto) 0.0 K/uL (0.0-0.5) Basophils # (Auto) 0.1 K/uL (0.0-0.1) Nucleated RBC Absolute Count (auto) 0.04 K/uL Peripheral Blood Smear Yes Y/N Chemistry Test 05/11/19 15:52 Sodium Level 131 mmol/L (137-145) Potassium Level 4.8 mmol/L (3.5-5.0) Chloride Level 91 mmol/L (98-107) Carbon Dioxide Level 20 mmol/L (22-31) Blood Urea Nitrogen 19 mg/dl (7-18) Creatinine 1.40 mg/dl (0.52-1.04) Glomerular Filtration Rate Calc 37.4 Random Glucose 140 mg/dl (75-110) Calcium Level 10.5 mg/dl (8.4-10.2) Total Bilirubin 0.9 mg/dl (0.2-1.3) Aspartate Amino Transf (AST/SGOT) 45 U/L (0-35) Alanine Aminotransferase (ALT/SGPT) 55 U/L (0-56) Alkaline Phosphatase 118 U/L (0-126) Ammonia < 9 UMOL/L (9-33) Total Creatine Kinase 48 U/L (30-135) Troponin I < 0.012 ng/ml Total Protein 9.1 g/dl (6.3-8.2) Albumin 5.3 g/dl (3.5-5.0) Toxicology Test 05/11/19 15:52 05/11/19 15:56 Serum Alcohol < 10 mg/dl Urine Opiates Screen Positive Urine Barbiturates Screen Negative Ur Tricyclic Antidepressants Screen Negative Urine Phencyclidine Screen Negative Urine Amphetamines Screen Negative Urine Benzodiazepines Screen Negative Urine Cocaine Screen Negative Urine Cannabinoids Screen Positive Urinalysis Test 05/11/19 15:56 Urine Color Yellow Urine Clarity Clear Urine pH 7.0 pH (4.8-9.5) Urine Specific Ringle 1.013 Urine Protein 100 mg/dL (NEGATIVE) Urine Glucose (UA) 50 mg/dL (NEGATIVE) Urine Ketones Negative mg/dL (NEGATIVE) Urine Blood Negative (NEGATIVE) Urine Nitrite Negative (NEGATIVE) Urine Bilirubin Negative (NEGATIVE) Urine Urobilinogen Negative mg/dL (0.2-1.9) Urine Leukocyte Esterase Negative (NEGATIVE) Urine RBC 1 /HPF (0-2/HPF) Urine WBC 1 /HPF (0-5/HPF) Urine Squamous Epithelial Cells Many /LPF (NONE-FEW) Urine Bacteria Negative /HPF (NONE-FEW) Urine Hyaline Casts Few /LPF (NONE-FEW) Urine Mucus None /HPF (NONE-FEW) EKG/Imaging Imaging CT Head without contrast and CT Cervical spine: Indication: Altered mental status. Known cervical spine fracture. Comparison: 01/28/2019. Technique: CT head: Axial CT images were obtained through the brain from the skull base to the vertex without administration of IV contrast. Reformatted coronal and sagittal images were also obtained. Technique: CT cervical spine: Axial CT imaging of the cervical spine was performed. 2-D sagittal and coronal CT reformats were also obtained. One of the following dose optimization techniques was utilized in the performance of this exam: Automated exposure control; adjustment of the mA and/or kV according to the patient's size; or use of an iterative reconstruction technique. Specific details can be referenced in the facility's radiology CT exam operational policy. FINDINGS: CT head: Artifact seen over the posterior aspect. No indication of acute hemorrhage, mass effect, extra-axial fluid collection, midline shift or hydrocephalus. No abnormal density. Espinoza/white matter differentiation appears normal. Bony structures show no fractures or bony lesions. Sinuses and mastoids visualized are clear. CT cervical spine: The known C2 vertebral body fracture appears stable. This is to the anterior lateral aspect of the vertebral body at the uncinate process without significant displacement. No appreciable distraction. No significantly showing callus formation. The second fracture is along the proximal lamina through the vertebral canal. No appreciable callus formation. The appearance is not significantly changed from previous exam. There are still minimal anterior spondylolisthesis of L2 over L3 which is unchanged. The vertebral bodies are otherwise aligned. No acute fractures or facet dislocation. No bony lesions. Drjz-lj-bgwmdkrz degenerative changes are present diffusely including displacement, endplate changes, osteophytes and facet arthropathy. No bony canal stenosis. Multilevel neural foramina narrowing. The endplates are maintained. No obvious disc herniation. Neural stimulating wires are in place. Prevertebral soft tissues and surrounding soft tissues unremarkable. The esophagus is mildly dilated with some fluid. Lung apices are clear. IMPRESSION: 1. No acute intracranial abnormality. 2. No acute osseous or acute alignment abnormality of the cervical spine. 3. C2 vertebral body shows a stable appearing fracture without significant callus formation appreciated. No change from the previous exam. 4. Degenerative changes of cervical spine. 5. The esophagus is dilated with some fluid. This could be due to reflux disease. If there is clinical concern and endoscopy can be performed to evaluate the distal esophagus. Report Dictated By: Vinicius Niño at 05/11/2019 4:47 PM Report E-Signed By: Vinicius Niño at 05/11/2019 5:04 PM ED Course/Re-evaluation ED Course Patient was admitted examined, history and physical were obtained. Differential diagnoses were considered. On examination patient is apparently altered, she is not able to answer questions. She is causally referring to her mother. An IV was started, patient received a liter of normal saline, a CBC, CMP, urinalysis, CT scan of the head and cervical spine were done. Lab results were unremarkable. Patient did have a positive drug screen for opiates and cannabis. The imaging results were negative for any acute findings. I discussed the case with Dr. White, hospitalist, who agreed to accept the patient for admission. I discussed this with the patient and her and he verbalized understanding and agreement with plan. Decision to Disposition Date: May 11, 2019 Decision to Disposition Time: 17:39 Depart Departure Latest Vital Signs Vital Signs Date Time Temp Pulse Resp B/P (MAP) Pulse Ox O2 Delivery O2 Flow Rate FiO2 8/1/19 15:43 97.8 84 24 212/116 92 Room Air Impression: Primary Impression: Altered mental status Condition: Condition Unchanged Disposition: Admitted from ER Referrals: JOSE SALGADO MD (PCP) Problem Qualifiers Primary Impression: Altered mental status Altered mental status type: delirium Qualified Codes: R41.0 - Disorientation, unspecified GERRY MELGOZA May 11, 2019 16:00
[2019-05-11 16:05] LABS: PLATELET COUNT, AUTOMATED 273 K/uL (150-450)
[2019-05-11] MEDS ORDERED: OLANZapine 10 MG VIAL IM ONLY ONE (17:00)
[2019-05-11] MEDS ORDERED: WATER STERILE 10 ML VIAL IM ONLY ONE (17:00)
--- NOTE | 2019-05-11 17:13 | RADIOLOGY IMAGING REPORT ---
FACILITY: [facility] - [place] PATIENT NAME: Beata Langley : 1950 MR: [id number] V: [id number] EXAM DATE: ORDERING PHYSICIAN: GERRY MELGOZA TECHNOLOGIST: Location: [facility] [place] Patient: Beata Langley : 1950 Visit/Account:[id number] Date of Sevice: 05/11/2019 CT Head without contrast and CT Cervical spine: Indication: Altered mental status. Known cervical spine fracture. Comparison: 01/28/2019. Technique: CT head: Axial CT images were obtained through the brain from the skull base to the verte x without administration of IV contrast. Reformatted coronal and sagittal images were also obtained. Technique: CT cervical spine: Axial CT imaging of the cervical spine was performed. 2-D sagittal and coronal CT reformats were also obtained. One of the following dose optimization techniques was utilized in the performance of this exam: Autom ated exposure control; adjustment of the mA and/or kV according to the patient's size; or use of an i terative reconstruction technique. Specific details can be referenced in the facility's radiology C T exam operational policy. FINDINGS: CT head: Artifact seen over the posterior aspect. No indication of acute hemorrhage, mass effect, extra-axial fluid collection, midline shift or hydrocephalus. No abnormal density. Espinoza/white matter differentiat ion appears normal. Bony structures show no fractures or bony lesions. Sinuses and mastoids visualize d are clear. CT cervical spine: The known C2 vertebral body fracture appears stable. This is to the anterior lateral aspect of the ve rtebral body at the uncinate process without significant displacement. No appreciable distraction. No significantly showing callus formation. The second fracture is along the proximal lamina through the vertebral canal. No appreciable callus formation. The appearance is not significantly changed from p revious exam. There are still minimal anterior spondylolisthesis of L2 over L3 which is unchanged. Th e vertebral bodies are otherwise aligned. No acute fractures or facet dislocation. No bony lesions. M tog-uj-hfftssvr degenerative changes are present diffusely including displacement, endplate changes, osteophytes and facet arthropathy. No bony canal stenosis. Multilevel neural foramina narrowing. The endplates are maintained. No obvious disc herniation. Neural stimulating wires are in place. Preverte bral soft tissues and surrounding soft tissues unremarkable. The esophagus is mildly dilated with dominguez e fluid. Lung apices are clear. IMPRESSION: 1. No acute intracranial abnormality. 2. No acute osseous or acute alignment abnormality of the cervical spine. 3. C2 vertebral body shows a stable appearing fracture without significant callus formation appreciat ed. No change from the previous exam. 4. Degenerative changes of cervical spine. 5. The esophagus is dilated with some fluid. This could be due to reflux disease. If there is clinica l concern and endoscopy can be performed to evaluate the distal esophagus. Report Dictated By: Vinicius Niño at 05/11/2019 4:47 PM Report E-Signed By: Vinicius Niño at 05/11/2019 5:04 PM WSN:[id number]
--- NOTE | 2019-05-11 17:13 | RADIOLOGY IMAGING REPORT ---
FACILITY: [facility] [place] PATIENT NAME: Beata Langley : 1950 MR: [id number] V: [id number] EXAM DATE: ORDERING PHYSICIAN: GERRY MELGOZA TECHNOLOGIST: Location: [facility] Patient: Beata Langley : 1950 Visit/Account:[id number] Date of Sevice: 05/11/2019 CT Head without contrast and CT Cervical spine: Indication: Altered mental status. Known cervical spine fracture. Comparison: 01/28/2019. Technique: CT head: Axial CT images were obtained through the brain from the skull base to the verte x without administration of IV contrast. Reformatted coronal and sagittal images were also obtained. Technique: CT cervical spine: Axial CT imaging of the cervical spine was performed. 2-D sagittal and coronal CT reformats were also obtained. One of the following dose optimization techniques was utilized in the performance of this exam: Autom ated exposure control; adjustment of the mA and/or kV according to the patient's size; or use of an i terative reconstruction technique. Specific details can be referenced in the facility's radiology C T exam operational policy. FINDINGS: CT head: Artifact seen over the posterior aspect. No indication of acute hemorrhage, mass effect, extra-axial fluid collection, midline shift or hydrocephalus. No abnormal density. Espinoza/white matter differentiat ion appears normal. Bony structures show no fractures or bony lesions. Sinuses and mastoids visualize d are clear. CT cervical spine: The known C2 vertebral body fracture appears stable. This is to the anterior lateral aspect of the ve rtebral body at the uncinate process without significant displacement. No appreciable distraction. No significantly showing callus formation. The second fracture is along the proximal lamina through the vertebral canal. No appreciable callus formation. The appearance is not significantly changed from p revious exam. There are still minimal anterior spondylolisthesis of L2 over L3 which is unchanged. Th e vertebral bodies are otherwise aligned. No acute fractures or facet dislocation. No bony lesions. M vsn-uc-jqzpeuyu degenerative changes are present diffusely including displacement, endplate changes, osteophytes and facet arthropathy. No bony canal stenosis. Multilevel neural foramina narrowing. The endplates are maintained. No obvious disc herniation. Neural stimulating wires are in place. Preverte bral soft tissues and surrounding soft tissues unremarkable. The esophagus is mildly dilated with dominguez e fluid. Lung apices are clear. IMPRESSION: 1. No acute intracranial abnormality. 2. No acute osseous or acute alignment abnormality of the cervical spine. 3. C2 vertebral body shows a stable appearing fracture without significant callus formation appreciat ed. No change from the previous exam. 4. Degenerative changes of cervical spine. 5. The esophagus is dilated with some fluid. This could be due to reflux disease. If there is clinica l concern and endoscopy can be performed to evaluate the distal esophagus. Report Dictated By: Vinicius Niño at 05/11/2019 4:47 PM Report E-Signed By: Vinicius Niño at 05/11/2019 5:04 PM WSN:[id number]
[2019-05-11] MEDS ORDERED: FLUSH 10 ML SYR IVP PRN (21:15)
[2019-05-11 21:17] VITALS: BP 199/131
[2019-05-11 21:19] VITALS: BP 186/131
[2019-05-11 21:25] VITALS: BP 208/136
--- NOTE | 2019-05-11 21:36 | History & Physical ---
History of Present Illness Chief Complaint encephalopathy History of Present Illness 69F presented with increased agitation, decreased LOC. PMHx significant for chronic pain. reports increased confusion and agitation. He found old bottle of baclofen which had 10 pills missing, patient reportedly ingested 4-10 tablets. She became less responsive and was more confused so he called EMS. She had been on opiate pain medications for 25 years reportedly quit 3 weeks ago, she is on chronic tizanidine and had run out 3 days ago. She was positive for marijuana, reports she had tried it 2-3 months ago to combat nausea. History Unable To Obtain Past Medical: Unable to Obtain/Update Problems: (1) CKD (chronic kidney disease) Status: Chronic (2) Chronic pain Status: Chronic (3) Autonomic dysfunction Status: Chronic Home Meds Active Scripts Rosuvastatin Calcium (Rosuvastatin Calcium) 10 Mg Tablet, 1 TAB PO DAILY, #30 TAB 11 Refills Prov:SARAH SALGADO MD 05/10/18 Reported Medications Cyanocobalamin (Vitamin B-12) (VITAMIN B-12) 250 Mcg Tablet, 250 MCG PO DAILY 04/25/19 Losartan Potassium (LOSARTAN POTASSIUM) 25 Mg Tablet, 25 MG PO QDAY 11/09/18 Diphenhydramine Hcl (BENADRYL ALLERGY) 25 Mg Tablet, 25 MG PO Q4H PRN for PRN, TAB 02/22/18 Docusate Sodium (STOOL SOFTENER) 100 Mg Tablet, 1-2 TAB PO DAILY 02/22/18 Spironolactone (SPIRONOLACTONE) 25 Mg Tablet, 25 MG PO QODAY, TAB 02/22/18 Metoprolol Succinate (METOPROLOL SUCCINATE) 50 Mg Tab.er.24h, 1 TAB PO DAILY, TAB 02/22/18 Duloxetine HCl (Duloxetine HCl) 60 Mg Capsule.dr, 1 CAP PO DAILY 02/22/18 Gabapentin (GABAPENTIN) 300 Mg Capsule, 300 MG PO TID, CAPSULE 02/22/18 Pantoprazole Sod (Protonix) 40 Mg Tabec, 40 MG PO BID, 0 Refills 10/10/08 Tizanidine Hcl (Zanaflex) 4 Mg Tab, 4 MG PO QID 1 TAKE 4 TIMES DAILY NEEDED FOR MUSCLE SPASM 05/12/08 Allergies: Coded Allergies: Soap (Verified Allergy, Unknown, 05/11/19) povidone-iodine (Verified Allergy, Unknown, 05/11/19) Patient History: FH: COPD (chronic obstructive pulmonary disease) FATHER, , Age:89 FH: breast cancer BROTHER OR SISTER FH: lung cancer MOTHER, , Age:85 FH: myocardial infarction FATHER, , Age:89 Hx Smoking: No Smoking Status: Never Smoker Hx Substance Use Disorder: Yes Social Drug Use: Occasional Social Drugs: Marijuana Exam Vital Signs Vital Signs Date Time Temp Pulse Resp B/P (MAP) Pulse Ox O2 Delivery O2 Flow Rate FiO2 05/11/19 20:08 94 Oxy Mask 8.0 05/11/19 18:30 ??? 05/11/19 18:30 97.0 18 05/11/19 18:08 206/129 (154) General Appearance: Afebrile Cardiovascular: Normal Rhythm & Peripheral Pulses Respiratory: No Respiratory Distress Medical Decision Making Data Points Result Diagram: 05/11/19 1552 05/11/19 1552 Assessment and Plan Problems: (1) Encephalopathy Status: Acute Assessment & Plan: Likely secondary to ingestion: marijuana and opiates are positive, reportedly took baclofen. CT negative for acute pathology. Will get Tylenol and salicylate levels. EKG pending. PRN Ativan for agitation. (2) Chronic pain Status: Chronic Assessment & Plan: Reportedly recently stopped opiate pain medications. (3) CKD (chronic kidney disease) Status: Chronic Assessment & Plan: Creatinine 1.4 on admission, IV fluids given. (4) Autonomic dysfunction *Optional Permanent Comment*: Syncopal episodes Last Edited By: Sarah Salgado MD on February 22, 2018 15:16 Status: Chronic Assessment & Plan: Unclear what the etiology would be. Venous Thromboembolism Antithrombotics Is Pt On Any Antithrombotics?: Yes Exam Sepsis Risk: No Definite Risk DILLON RAMOS DO May 11, 2019 21:36
[2019-05-11 22:00] VITALS: BP 200/110
[2019-05-11 22:19] VITALS: BP 200/110
[2019-05-11] MEDS: LORazepam 2 MG/ML VIAL IVP PRN (22:58)
[2019-05-11] MEDS: LABETALOL HCL 100 MG/20ML VIAL IVP PRN (23:01)
[2019-05-12] VITALS (28 sets, daily range): BP systolic 121–180; BP diastolic 76–115
[2019-05-12] MEDS: LABETALOL HCL 100 MG/20ML VIAL IVP PRN ×2 (01:22→04:48)
[2019-05-12 06:35] LABS: PLATELET COUNT, AUTOMATED 237 K/uL (150-450)
[2019-05-12] MEDS ORDERED: ENOXAPARIN 40 MG/0.4ML SYR SC SCH (09:00)
--- NOTE | 2019-05-12 09:35 | EKG ---
FACILITY: [facility] PATIENT NAME: PARVEEN MENDOZA : [id number] MR: [id number] V: [id number] EXAM DATE: ORDERING PHYSICIAN: DILLON MALDONADO TECHNOLOGIST: CHAD Test Reason : OD Blood Pressure : / mmHG Vent. Rate : 082 BPM Atrial Rate : 082 BPM P-R Int : 212 ms QRS Dur : 072 ms QT Int : 460 ms P-R-T Axes : -13 041 086 degrees QTc Int : 537 ms Electronic atrial pacemaker Anterior infarct , age undetermined Prolonged QT Abnormal ECG When compared with ECG of 28-JAN-2019 10:02, Relatively unchanged Confirmed by HENRIK WORRELL ([id number]) on 05/12/2019 1:59:14 PM Referred By: Confirmed By:HENRIK WORRELL
[2019-05-12] MEDS: LORazepam 2 MG/ML VIAL IVP PRN (09:56)
--- NOTE | 2019-05-12 10:46 | RADIOLOGY IMAGING REPORT ---
FACILITY: [facility] [place] PATIENT NAME: Beata Langley : 1950 MR: [id number] V: [id number] EXAM DATE: ORDERING PHYSICIAN: HENRIK WORRELL TECHNOLOGIST: [place] [facility] [place] Patient: Beata Langley : 1950 Visit/Account:[id number] Date of Sevice: 05/12/2019 Exam type: KUB SINGLE VIEW ABDOMEN History: Vomit Comparison: None. Findings: Bowel gas pattern is nonspecific. Soft tissue fullness in the pelvis may represent a distended urina ry bladder. Clinical correlation needed. There is a battery pack projecting over the left-sided the pelvis without electrode lead projecting over the left-sided the abdomen the visualized lower chest. Cardiac pacemaker leads are seen in the lower thorax. IMPRESSION: 1. Nonspecific bowel gas pattern Soft tissue fullness in the pelvis may represent a distended urinary bladder Report Dictated By: Chelsea Cosme MD at 05/12/2019 10:37 AM Report E-Signed By: Chelsea Cosme MD at 05/12/2019 10:39 AM WSN:[id number]
--- NOTE | 2019-05-12 11:30 | Hospitalist Progress Note ---
Subjective Progress Notes Subjective She continues to be restless and confused. She had another episode of vomiting this morning. Physical Exam Vital Signs Date Time Temp Pulse Resp B/P (MAP) Pulse Ox O2 Delivery O2 Flow Rate FiO2 05/12/19 08:00 130/90 (103) 05/12/19 08:00 91 Oxy Mask 9.0 05/12/19 05:52 75 05/12/19 04:00 98.0 20 Intake and Output 05/12/19 07:03 Intake Total 2000 ml Balance 2000 ml Intake IV Total 2000 ml # Voids 2 # Emeses 2 General Appearance: Other (Occasionally growns. ) Neuro: Other (Opens eyes to voice. Not following commands. Intentional movements to painful stimuli and repositioning for comfort. VENTURA.) Cardiovascular: Regular Rate and Rhythm Respiratory: Clear to Auscultation Result Diagram: 05/12/1955505/12/19555 Assessment and Plan Problems: (1) Encephalopathy Status: Acute Assessment & Plan: She presented with AMS the day of admission. Likely secondary to ingestion: marijuana and opiates are positive, reportedly took her husbands old baclofen. CT negative for acute pathology. QTc is prolonged. No concerns from about suicidal ideation or other ingestions. She remains confused and only opens eyes to voice. GCS of about 10. No focal motor deficits. Will repeat the ECG. (2) Nausea & vomiting Status: Acute Assessment & Plan: Etiology unclear. She had brown foul smelling vomitus this morning. Afebrile. WBC remains elevated. KUB had a non-specific gas pattern. Bedside US showed a large bladder, so will place Pacheco. If she spikes a fever, continues to have abdominal pain, or continues to vomit then will get an abd/pelvis CT. (3) Chronic pain Status: Chronic Assessment & Plan: Reportedly recently stopped opiate pain medications. (4) CKD (chronic kidney disease) Status: Chronic Assessment & Plan: Creatinine 1.4 on admission. Continue hydration and follow. (5) Autonomic dysfunction *Optional Permanent Comment*: Syncopal episodes Last Edited By: Sarah Voss MD on February 22, 2018 15:16 Status: Chronic Assessment & Plan: Unclear what the etiology would be. Exam Sepsis Risk: No Definite Risk HENRIK WORRELL MD May 12, 2019 11:30
[2019-05-12] MEDS: NS(*) 0.9% 1000 ML BAG 1,000 ML IV PRN ×3 (11:38→22:53)
--- NOTE | 2019-05-12 12:24 | EKG ---
FACILITY: [facility] PATIENT NAME: PARVEEN MENDOZA : [id number] MR: [id number] V: [id number] EXAM DATE: ORDERING PHYSICIAN: HENRIK WORRELL TECHNOLOGIST: AGUSTINA Test Reason : PROLONGED QC Blood Pressure : / mmHG Vent. Rate : 097 BPM Atrial Rate : 097 BPM P-R Int : 158 ms QRS Dur : 064 ms QT Int : 440 ms P-R-T Axes : 078 026 090 degrees QTc Int : 558 ms Normal sinus rhythm Right atrial enlargement Anterior infarct (cited on or before 11-MAY-2019) ST and T wave abnormality, consider lateral ischemia Prolonged QT Abnormal ECG When compared with ECG of 11-MAY-2019 22:34, Sinus rhythm has replaced Electronic atrial pacemaker Confirmed by HENRIK WORRELL ([id number]) on 05/12/2019 2:04:06 PM Referred By: ANAID Confirmed By:HENRIK WORRELL
--- NOTE | 2019-05-12 14:15 | Medical Nutrition Therapy ---
Nutrition Anthropometrics Height (Inches): 64.00 Height (Calculated Centimeters: 162.812964 Weight (Pounds): 167 Weight (Calculated Kilograms): 75.750 BMI: 28.7 [place] Nutrition Score: Probably Inadequate [place] Nutrition Risk Score: 14 Dietary Referral Nutrition Risk Factors: Nutrition Risk Comment: Physical Findings Physical Appearance: Overweight BMI 25-29 Skin Appearance Skin Appearance: Edema Edema Location Modifier: Edema Location: Type of Edema: Degree of Edema: Gastrointestinal Symptoms GI Symtoms: Vomiting Tube Present: Bowel Sounds: Hypoactive Recent Bowel Pattern: Stool Characteristics: Nutrition/Food History Good Breakfast: Typically eats 3 meals per day Nutritional Diagnosis Nutritional Risk Acuity 3: Fair Appetite Past Medical History: CKD Stage III, Chronic Pain, HTN, HLD Nutritional Acuity: 3-Mild Energy Requirement: 1657 ([place] St. Jeor x (AF 1.3)) Protein Requirement: 61 (0.8g/kg (CKD stage 3)) Fluid Requirement: 1909 (30mL/kg) Diet Type: NPO (Nothing by Mouth) Nutrition Intervention: Incr diet as tolerated Nutrition Monitoring & Eval Nutrition Monitoring: Renal Function, Diet Advancement, Weight RD Patient Assessment Time: [address] Assessment Type: RD Assessment Patient Nutrition Acuity: 3-Mild Follow Up Date: May 17, 2019 Nutritional Comment: 05/12/19: Pt admit for AMS, recently discontinued opiate use for pain mgmt. Pertinent PMH include CKD stage III, HTN, HLD. Pt having bouts of nausea. Spoke with pt this afternoon briefly. He reports pt has been eating well at home no recent wt loss. Reviewed labs, Cre and BUN elevated, Na and Cl low, K+ WNR. When diet advances may need to limit protein. Will continue to follow.CECI MAHARAJ May 12, 2019 14:15
--- NOTE | 2019-05-12 15:06 | Miscellaneous Provider Note ---
Miscellaneous Provider Note Note 1300cc of PVR. Once the Pacheco was placed, the patient was much more comfortable. Pacheco to remain in place. The patient is a one on one to prevent IV and Pacheco self removal. HENRIK WORRELL MD May 12, 2019 15:06
[2019-05-12 16:57] LABS: PLATELET COUNT, AUTOMATED 293 K/uL (150-450)
[2019-05-12] MEDS ORDERED: LORazepam 2 MG/ML VIAL IVP PRN (17:15)
[2019-05-12] MEDS ORDERED: NS(*) 0.9% 1000 ML BAG 1,000 ML IV ONE ×2 (17:15→18:00)
[2019-05-12] MEDS ORDERED: KETAMINE HCL-NS 50 MG/5 ML SYR IVP ONE ×4 (17:50→20:30)
[2019-05-12] MEDS ORDERED: NS 0.9% IVPB SCH (18:00)
[2019-05-12] MEDS ORDERED: ERTAPENEM IVPB SCH (18:00)
[2019-05-12] MEDS ORDERED: IOPAMIDOL 76% 100 ML INFUS BTL 0 ML ONE (18:33)
[2019-05-12] MEDS ORDERED: SUCCINYLCHOL CHL 200MG/10ML VL IVP ONE (20:25)
[2019-05-12] MEDS ORDERED: ETOMIDATE 20 MG/10 ML VIAL IVP ONE (20:25)
--- NOTE | 2019-05-12 21:51 | Procedure Note ---
Arthrocentesis Procedure Note Copies to: ; Central Line Procedure Note Indication for Central Line: IV access, lab draw Consent Signed: Yes (Over the phone consent done) Central Line Lumen: Triple Central Line Procedure: Chlorhexidine Prep, Sterile Drapes Applied, Sterile Dressing Applied Central Line Position: R Internal Jugular Anesthesia Used: 1% Lidocaine CC's of Anesthesia: 3 Complications: None Central Line Post Position: Sutured, Confirmed Blood Return, Position Confirmed w/CXR HENRIK WORRELL MD May 12, 2019 21:51
[2019-05-12 21:52] LABS: INR 1.03; PLATELET COUNT, AUTOMATED 262 K/uL (150-450)
[2019-05-12] MEDS: ORAL SUCTION/CHLORHX/SWAB KIT MT SCH (21:54)
[2019-05-12] MEDS: PROPOFOL(*)1000 MG/100 ML VIAL 100 ML IV PRN (22:02)
--- NOTE | 2019-05-12 22:20 | RADIOLOGY IMAGING REPORT ---
FACILITY: [facility] [place] PATIENT NAME: Beata Langley : 1950 MR: [id number] V: [id number] EXAM DATE: ORDERING PHYSICIAN: HENRIK WORRELL TECHNOLOGIST: [facility] Patient: Beata Langley : 1950 Visit/Account:[id number] Date of Sevice: 05/12/2019 Portable chest: Indication: Tube placement. Technique: A single frontal film was obtained. Comparison: 08/05/2016 Lines and tubes: The tip of an ET tube is 6.6 cm above the betty. A right jugular venous catheter te rminates in the SVC. Skeletal and soft tissue structures: Intact and unchanged. A neurostimulator is present at the level of the cervical spine. Heart and mediastinum: The heart size is normal. The cardiac pacemaker leads appear unchanged. Lung antunez: Well-expanded and clear. No focal opacities. Pleural spaces: No evidence of pneumothorax or effusion. Impression: The ET tube and central line are in satisfactory position. The lungs are well expanded an d clear. There is no evidence of pneumothorax. Report Dictated By: Romero Abrams MD at 05/12/2019 10:06 PM Report E-Signed By: Romero Abrams MD at 05/12/2019 10:13 PM WSN:[id number]
[2019-05-12] MEDS: MIDAZOLAM 50 MG/10 ML VIAL 100 MG in NS(*) 0.9% 100 ML BAG 80 ML IV PRN (22:34)
--- NOTE | 2019-05-12 23:57 | RADIOLOGY IMAGING REPORT ---
[place] [facility] [place] NAME: Beata Langley : 1950 MR: [id number] V: [id number] EXAM DATE: ORDERING PHYSICIAN: HENRIK WORRELL TECHNOLOGIST: Location: [facility] Patient: Beata Langley : 1950 Visit/Account:[id number] Date of Sevice: 05/12/2019 EXAMINATION: CT abdomen without IV contrast CT pelvis without IV contrast HISTORY: Overdose. TECHNIQUE: Spiral scan was through the abdomen and pelvis without intravenous contrast. Sagittal a nd coronal reformatted images are also submitted. One of the following dose optimization techniques was utilized in the performance of this exam: Autom ated exposure control; adjustment of the mA and/or kV according to the patient's size; or use of an i terative reconstruction technique. Specific details can be referenced in the facility's radiology C T exam operational policy. COMPARISON: 04/29/2008. FINDINGS: Please note that without intravenous contrast, sensitivity to detection of parenchymal disease is pace ited. Liver / biliary: Liver shows no focal normality. The gallbladder shows no gallstones or focal abnorma lity. The biliary system is unremarkable. Pancreas: No focal abnormality. Spleen: Negative. Adrenal glands: Negative. Kidneys: No stones or hydronephrosis. No discrete lesions. Pelvic structures: The uterus is not visualized may been surgically removed. The left ovary is pre sent and shows a 3.8 cm cyst. Right ovary is unremarkable. The urinary bladder is mainly decompressed with a Pacheco catheter in place. Bowel: The colon shows no focal normality some stool seen throughout. The appendix is normal. The sma ll bowel shows no focal abnormality or obstruction. The stomach shows a moderate to large hiatal nubia ia and otherwise unremarkable. Peritoneum / retroperitoneum / mesenteries: No free air, free fluid, fluid collections or areas of in flammation. Vessels: Negative. Musculoskeletal / Body wall: No acute fractures or aggressive bony lesions. Lymph node assessment: Negative. Lower chest: Mild scarring, otherwise clear. IMPRESSION: 1. No acute abnormality. 2. Left ovarian cyst. 3. Moderate to large hiatal hernia. 4. Other chronic findings as above. Report Dictated By: Vinicius Niño at 05/12/2019 9:55 PM Report E-Signed By: Vinicius Niño at 05/12/2019 10:10 PM WSN:[id number]
[2019-05-13] VITALS (94 sets, daily range): BP systolic 94–167; BP diastolic 55–100
[2019-05-13] MEDS ORDERED: NS 0.9% ONE (00:52)
[2019-05-13] MEDS ORDERED: MINI ONE (00:52)
[2019-05-13] MEDS ORDERED: ACYCLOVIR IVPB SCH (01:00)
[2019-05-13] MEDS ORDERED: NS 0.9% IVPB SCH ×2 (01:00→03:00)
[2019-05-13] MEDS: cefTRIAXone 2 GM VIAL IVP SCH ×2 (01:23→13:25)
[2019-05-13] MEDS: PROPOFOL(*)1000 MG/100 ML VIAL 100 ML IV PRN ×5 (01:24→21:18)
[2019-05-13] MEDS ORDERED: VANCOMYCIN(*) 1 GM VIAL 2 GM in NS(*) 0.9% 500 ML BAG 500 ML IVPB ONE (02:00)
--- NOTE | 2019-05-13 02:26 | ER Inpatient Procedure ---
Inpatient Procedure Procedure: Rapid sequence intubation. Indication for the procedure was respiratory failure. The patient was preoxygenated with 100% oxygen by bag-valve mask. The patient was given the following IV medications: Etomidate and succinylcholine. The patient was orally endotracheally intubated using the Glidescope with a 7.0 ETT. Tracheal intuba tion was confirmed by direct visualization; with misting on the tube; breath sounds were auscultated equally bilaterally; appropriate color change with CO2 detector. The patient was placed on the capnography monitor. Chest X-ray evaluated by the hospitalist. The procedure was performed by my PA student with myself at her side. GUERLINE GOULD MD May 13, 2019 02:26
[2019-05-13] MEDS ORDERED: AMPICILLIN IVPB SCH (03:00)
[2019-05-13] MEDS ORDERED: MINI IVPB SCH (03:00)
[2019-05-13 05:34] LABS: PLATELET COUNT, AUTOMATED 209 K/uL (150-450)
--- NOTE | 2019-05-13 06:34 | RADIOLOGY IMAGING REPORT ---
FACILITY: [facility] [place] PATIENT NAME: Beata Langley : 1950 MR: [id number] V: [id number] EXAM DATE: ORDERING PHYSICIAN: HENRIK WORRELL TECHNOLOGIST: [facility] Patient: Beata Langley : 1950 Visit/Account:[id number] Date of Sevice: 05/13/2019 CHEST SINGLE AP 05/13/2019 06:00 hours. HISTORY: Intubated. Tube and line placement. COMPARISON: 05/12/2019 and studies dating to 05/08/2008. TECHNIQUE: Portable AP view of the chest. FINDINGS: TUBES/LINES/HARDWARE: ET tube terminates 6.5 cm above the betty. NG or OG tube terminates off the in ferior x-ray, at least as far as the distal body of the stomach. Right IJ catheter terminates in the lower superior vena cava. Pacemaker generator overlies the left axilla, and leads terminate within th e right atrium and right ventricle. There are surgical clips at the base of the left neck. There are external chest leads. Neural stimulator terminates in the cervical spine. PULMONARY/PLEURA: Lungs are clear. There is no pneumothorax or pleural effusion. CARDIOMEDIASTINAL: Cardiac and mediastinal silhouettes are within normal limits. There is mild aortic calcification. BONES/SOFT TISSUES: No acute osseous abnormality. There is mild rightward curvature of the thoracic s pine. There is moderate leftward curvature of the lumbar spine with a rotatory component. The visible abdomen is normal. IMPRESSION: 1. No acute cardiopulmonary process. 2. Tubes lines as above. Report Dictated By: Sushma Young at 05/13/2019 6:23 AM Report E-Signed By: Sushma Young at 05/13/2019 6:27 AM WSN:[id number]
--- NOTE | 2019-05-13 07:37 | RADIOLOGY IMAGING REPORT ---
FACILITY: [facility] PATIENT NAME: Beata Langley : 1950 MR: [id number] V: [id number] EXAM DATE: ORDERING PHYSICIAN: HENRIK WORRELL TECHNOLOGIST: [place] [facility] [place] Patient: Beata Langley : 1950 Visit/Account:[id number] Date of Sevice: 05/13/[address]: Indication: Altered mental status. Technique: Contiguous axial sections were obtained from the base to the vertex without contrast enhan cement. There is some artifact through the posterior fossa. One of the following dose optimization techniques was utilized in the performance of this exam: Autom ated exposure control; adjustment of the mA and/or kV according to the patient's size; or use of an i terative reconstruction technique. Specific details can be referenced in the facility's radiology CT exam operational policy. Comparison: 05/11/2019 Findings: There is no evidence of intra-axial or extra-axial hemorrhage. Mild cortical atrophy appear s unchanged. Mild periventricular white matter disease appears unchanged. No new focal areas of decre ased or increased attenuation are clearly identified. There is no evidence of mass, edema, or shift o f the midline structures. The size, shape, and configuration of the ventricular system are stable. Th e skeletal structures are stable. There is minimal mucosal thickening in the sinuses. Impression: No acute process or significant change. Report Dictated By: Romero Abrams MD at 05/13/2019 7:23 AM Report E-Signed By: Romero Abrams MD at 05/13/2019 7:29 AM WSN:[id number]
[2019-05-13] MEDS: ORAL SUCTION/CHLORHX/SWAB KIT MT SCH ×2 (09:02→21:18)
[2019-05-13] MEDS: NS 0.9% IVPB SCH ×5 (09:03→21:18)
[2019-05-13] MEDS: ACYCLOVIR IVPB SCH ×2 (09:03→17:04)
--- NOTE | 2019-05-13 09:31 | Hospitalist Progress Note ---
Subjective Progress Notes Subjective Sedated on ventilator. Oxygenating/ventilating easily. Physical Exam Vital Signs Date Time Temp Pulse Resp B/P (MAP) Pulse Ox O2 Delivery O2 Flow Rate FiO2 05/13/19 09:17 89 14 05/13/19 09:17 95 Mechanical Ventilator 25.0 05/13/19 06:15 99.8 124/78 (93) 05/12/19 19:30 3.0 Intake and Output 05/13/19 07:03 Intake Total 3387 ml Output Total 2310 ml Balance 1077 ml Intake IV Total 3387 ml Output Urine Total 1760 ml Gastric Drainage Total 550 ml # Emeses 1 General Appearance: Other (sedated on ventilator) ENT: Other (ET/OG tubes in place) Cardiovascular: Regular Rate and Rhythm Respiratory: Other (essentially clear) Chest: Other (pacemaker left upper chest) GI: Other (soft/BS present) Extremities: Warm, Perfused Integumentary: Other (no rashes noted) Result Diagram: 05/13/1951805/13/19518 Assessment and Plan Problems: (1) Encephalopathy Status: Acute Assessment & Plan: She presented with acute mental status changes the day of admission. May be secondary to ingestion (marijuana and opiates are positive and reportedly took her husbands old baclofen), but cannot exclude infectious causes. CT negative for acute pathology (cannot do MRI due to pacemaker). No concerns from about suicidal ideation or other ingestions. She is now intubated as concerned about airway protection. CXR unremarkable, UA clear. Blood cultures negative thus far. She was placed on empiric antibiotics (Rocephin, ampicillin, vancomycin) and antiviral (Acyclovir). Will see if anesthesia can do LP to evaluate CSF. (2) Nausea & vomiting Status: Acute Assessment & Plan: Etiology unclear. She had brown foul smelling vomitus yesterday morning. Afebrile. WBC remains elevated. KUB had a non-specific gas pattern. Bedside US showed a large bladder, so we did place Pacheco catheter. CT of abdomen and pelvis was rather unremarkable. Will place her on PPI therapy. (3) Chronic pain Status: Chronic Assessment & Plan: Reportedly recently stopped opiate pain medications. She has been on chronic gabapentin and muscle relaxant (Zanaflex). She does have cervical/thoracic spine stimulator in place. (4) CKD (chronic kidney disease) Status: Chronic Assessment & Plan: Creatinine 1.5 today, which appears to be near her baseline. Continue IV hydration and follow. (5) Autonomic dysfunction *Optional Permanent Comment*: Syncopal episodes Last Edited By: Sarah Voss MD on February 22, 2018 15:16 Status: Chronic Assessment & Plan: Unclear what the etiology would be. Exam Sepsis Risk: Severe Sepsis Risk IVONNE BROWN MD May 13, 2019 09:31
[2019-05-13] MEDS: PANTOPRAZOLE SOD 40 MG IV VIAL IVP SCH (09:51)
[2019-05-13] MEDS: MINI IVPB SCH ×3 (09:51→21:18)
[2019-05-13] MEDS: AMPICILLIN IVPB SCH ×3 (09:51→21:18)
[2019-05-13] MEDS ORDERED: KCL (*) 20 MEQ/100 ML PREMIX 100 ML IV ONE (11:15)
[2019-05-13] MEDS ORDERED: CALCIUM GLUC(*)10% 100MG/ML VL 1,000 MG in NS(*) 0.9% 100 ML BAG 100 ML IVPB ONE (11:30)
--- NOTE | 2019-05-13 13:08 | Pharmacy Note ---
Vancomycin Management Note Vanco Dosing Note Pharmacy Services Pharmacokinetic Dosing Consult, Vancomycin Pharmacy has been consulted for dosing and monitoring of vancomycin for 69 yo female for possible sepsis. Pertinent Past Medical History: CKD Antibiotics prior to admission; UNKNOWN Additional Antimicrobials: Acyclovir 757.5mg Q8H Start 05/13 Ampicillin 1g Q6H Start 05/13 Ceftriaxone 2g Q12H Start 05/13 Ertapenem 500mg Q24H Start 05/12 , Stop 05/13 Patient Information: Height (cm): 162.56 cm Actual Body Weight (ABW): 75.5 kg Pertinent Lab Tests WHITE BLOOD COUNT 14.9 NEUTROPHILS 77% BLOOD UREA NITROGEN 39 SCR 1.5 Culture Results: BLOOD no growth URINE SPUTUM WOUND Assessment: CrCl ~30ml/min Renal function is stable, improving slightly Vancomycin Monitoring Assessment Goal Vancomycin Trough Level: 15-20 Plan: 1) Vancomycin 25 mg/kg loading dose (based on ABW): 2000 mg IV x 1 2) Vancomycin maintenance dose (based on ABW): 1250 mg Q24H 3) Vancomycin monitoring: Vanco level to be drawn 05/15 at 0100, before the 3rd dose. Pharmacy will continue to monitor daily and adjust regimen as appropriate. Thank you for the consult. OLMAN BOLIVAR May 13, 2019 13:08
[2019-05-13] MEDS: NS(*) 0.9% 1000 ML BAG 1,000 ML IV PRN (19:12)
[2019-05-14] VITALS (96 sets, daily range): BP systolic 81–185; BP diastolic 46–123
[2019-05-14] MEDS: ACYCLOVIR IVPB SCH ×3 (00:40→17:11)
[2019-05-14] MEDS: NS 0.9% IVPB SCH ×7 (00:40→21:39)
[2019-05-14] MEDS: cefTRIAXone 2 GM VIAL IVP SCH ×2 (00:40→12:20)
[2019-05-14] MEDS ORDERED: VANCOMYCIN(*) 1 GM VIAL 1 GM, VANCOMYCIN (*) 0.5 GM VIAL 0.25 GM in NS(*) 0.9% 250 ML B... IVPB SCH (02:00)
[2019-05-14] MEDS: MINI IVPB SCH ×4 (03:13→21:39)
[2019-05-14] MEDS: AMPICILLIN IVPB SCH ×4 (03:13→21:39)
[2019-05-14] MEDS: PROPOFOL(*)1000 MG/100 ML VIAL 100 ML IV PRN ×3 (03:55→23:58)
[2019-05-14] MEDS: METOPROLOL TART 5 MG/5 ML VIAL IVP SCH ×4 (05:08→22:45)
--- NOTE | 2019-05-14 05:19 | EKG ---
[facility] PATIENT NAME: PARVEEN MENDOZA : [id number] MR: [id number] V: [id number] EXAM DATE: ORDERING PHYSICIAN: IVONNE BROWN TECHNOLOGIST: CHAD Test Reason : AFIB Blood Pressure : / mmHG Vent. Rate : 143 BPM Atrial Rate : 315 BPM P-R Int : 000 ms QRS Dur : 068 ms QT Int : 352 ms P-R-T Axes : 000 050 170 degrees QTc Int : 543 ms Atrial fibrillation with rapid ventricular response Diffuse ST-T findings concerning for ischemia Abnormal ECG Confirmed by IVONNE BROWN ([id number]) on 05/14/2019 6:53:49 AM Referred By: Confirmed By:IVONNE BROWN
[2019-05-14 06:11] LABS: PLATELET COUNT, AUTOMATED 177 K/uL (150-450)
--- NOTE | 2019-05-14 06:42 | RADIOLOGY IMAGING REPORT ---
FACILITY: [facility] PATIENT NAME: Beata Langley : 1950 MR: [id number] V: [id number] EXAM DATE: ORDERING PHYSICIAN: IVONNE BROWN TECHNOLOGIST: Location: [facility] Patient: Beata Langley : 1950 Visit/Account:[id number] Date of Sevice: 05/14/2019 Portable chest: Indication: Respiratory insufficiency. Technique: A single frontal film was obtained. Comparison: 05/13/2019 Lines and tubes: Remain in satisfactory position. Skeletal and soft tissue structures: Stable. Heart and mediastinum: Stable. Lung antunez: Minimal left basilar scarring or atelectasis. Otherwise clear. Pleural spaces: Unremarkable. Impression: No acute changes. Report Dictated By: Romero Abrams MD at 05/14/2019 6:34 AM Report E-Signed By: Romero Abrams MD at 05/14/2019 6:36 AM WSN:[id number]
[2019-05-14] MEDS: PANTOPRAZOLE SOD 40 MG IV VIAL IVP SCH (08:49)
[2019-05-14] MEDS: ORAL SUCTION/CHLORHX/SWAB KIT MT SCH ×2 (08:55→21:39)
[2019-05-14] MEDS: NS(*) 0.9% 1000 ML BAG 1,000 ML IV PRN ×2 (08:57→22:45)
[2019-05-14] MEDS: KCL (*) 20 MEQ/100 ML PREMIX 100 ML IV SCH ×2 (10:49→13:14)
--- NOTE | 2019-05-14 12:38 | Hospitalist Progress Note ---
Subjective Progress Notes Subjective The patient remains intubated and sedated today. Physical Exam Vital Signs Date Time Temp Pulse Resp B/P (MAP) Pulse Ox O2 Delivery O2 Flow Rate FiO2 05/14/19 12:22 98 Mechanical Ventilator 25.0 05/14/19 12:22 89 05/14/19 12:15 21 173/90 (117) 05/14/19 12:00 98.4 05/12/19 19:30 3.0 Intake and Output 05/14/19 07:03 Intake Total 4284 ml Output Total 620 ml Balance 3664 ml Intake IV Total 3692 ml Tube Feeding 482 ml Tube Irrigant 110 ml Output Urine Total 620 ml General Appearance: Other (Intubated and sedated.) Neuro: Other (Moves extremities at times.) ENT: Other (ET tube in place.) Cardiovascular: Regular Rate and Rhythm Respiratory: Other (Coarse breathe sounds L lung anteriorly.) GI: Soft and Non-Tender Extremities: Warm, Perfused Integumentary: Skin Intact without Lesion / Mass Psych: Other (Sedated.) Result Diagram: 05/14/1951605/14/19516 Assessment and Plan Problems: (1) Encephalopathy Status: Acute Assessment & Plan: She presented with acute mental status changes the day of admission. May be secondary to ingestion (marijuana and opiates are positive and reportedly took her husbands old baclofen), but cannot exclude infectious causes. CT negative for acute pathology (cannot do MRI due to pacemaker). No concerns from about suicidal ideation or other ingestions. She is now intubated as concerned about airway protection. CXR unremarkable, UA clear. Blood cultures negative thus far. She was placed on empiric antibiotics (Rocephin, ampicillin, vancomycin) and antiviral (Acyclovir). Anesthesia performed an LP to evaluate CSF which is unremarkable so far. Culture is no growth to date. (2) Nausea & vomiting Status: Acute Assessment & Plan: Etiology unclear. She had brown foul smelling vomitus yesterday morning. Afebrile. WBC remains elevated. KUB had a non-specific gas pattern. Bedside US showed a large bladder, so we did place Pacheco catheter. CT of abdomen and pelvis was rather unremarkable. Will place her on PPI therapy. (3) Chronic pain Status: Chronic Assessment & Plan: Reportedly recently stopped opiate pain medications. She has been on chronic gabapentin (100mg tid) and muscle relaxant (Zanaflex). She does have cervical/thoracic spine stimulator in place. (4) CKD (chronic kidney disease) Status: Chronic Assessment & Plan: Creatinine 1.5 today, which appears to be near her baseline. Continue IV hydration and follow. (5) Autonomic dysfunction *Optional Permanent Comment*: Syncopal episodes Last Edited By: Sarah Voss MD on February 22, 2018 15:16 Status: Chronic Assessment & Plan: Unclear what the etiology would be. Time Spent on Plan of Care: < 30 min Exam Sepsis Risk: No Definite Risk LATASHA BROWN MD May 14, 2019 12:38
[2019-05-14] MEDS: MIDAZOLAM 50 MG/10 ML VIAL 100 MG in NS(*) 0.9% 100 ML BAG 80 ML IV PRN (14:13)
[2019-05-15] VITALS (87 sets, daily range): BP systolic 132–191; BP diastolic 71–110
[2019-05-15] MEDS: NS 0.9% IVPB SCH ×5 (00:24→16:26)
[2019-05-15] MEDS: cefTRIAXone 2 GM VIAL IVP SCH ×2 (00:24→12:43)
[2019-05-15] MEDS: ACYCLOVIR IVPB SCH ×3 (00:24→16:26)
[2019-05-15] MEDS ORDERED: VANCOMYCIN(*) 1 GM VIAL 1 GM, VANCOMYCIN (*) 0.5 GM VIAL 0.5 GM in NS(*) 0.9% 250 ML BA... IVPB SCH (02:00)
[2019-05-15] MEDS ORDERED: VANCOMYCIN 0.5 GM VIAL ONE (02:01)
[2019-05-15] MEDS: MINI IVPB SCH ×2 (03:29→09:49)
[2019-05-15] MEDS: AMPICILLIN IVPB SCH ×2 (03:29→09:49)
[2019-05-15] MEDS: METOPROLOL TART 5 MG/5 ML VIAL IVP SCH (04:49)
[2019-05-15] MEDS: PROPOFOL(*)1000 MG/100 ML VIAL 100 ML IV PRN ×4 (05:06→22:58)
--- NOTE | 2019-05-15 05:13 | EKG ---
FACILITY: [facility] PATIENT NAME: PARVEEN MENDOZA : [id number] MR: [id number] V: [id number] EXAM DATE: ORDERING PHYSICIAN: LATASHA BROWN TECHNOLOGIST: CHAD Test Reason : OD Blood Pressure : / mmHG Vent. Rate : 087 BPM Atrial Rate : 087 BPM P-R Int : 142 ms QRS Dur : 064 ms QT Int : 468 ms P-R-T Axes : 053 046 101 degrees QTc Int : 563 ms Normal sinus rhythm Anterior infarct , age undetermined Prolonged QT Abnormal ECG Confirmed by LATASHA COTTON ([id number]) on 05/15/2019 6:35:32 AM Referred By: Confirmed By:LATASHA COTTON
[2019-05-15 05:34] LABS: PLATELET COUNT, AUTOMATED 184 K/uL (150-450)
--- NOTE | 2019-05-15 07:01 | RADIOLOGY IMAGING REPORT ---
FACILITY: [facility] PATIENT NAME: Beata Langley : 1950 MR: [id number] V: [id number] EXAM DATE: ORDERING PHYSICIAN: LATASHA BROWN TECHNOLOGIST: Location: [facility] - [place] Patient: Beata Langley : 1950 Visit/Account:[id number] Date of Sevice: 05/15/2019 CHEST SINGLE AP 05/15/2019 06:00 hours. HISTORY: Intubation. Follow-up. COMPARISON: 01/13/2019 and studies dating to 05/08/2008. TECHNIQUE: Portable AP view of the chest. FINDINGS: TUBES/LINES/HARDWARE: ET tube terminates 7.5 cm above the betty. NG or OG tube terminates off the in ferior x-ray, at least as far as the body of the stomach. Right IJ catheter terminates in the lower s uperior vena cava. Pacemaker generator overlies the left lateral upper chest, and leads terminate wit hin the right atrium and right ventricle. Unchanged surgical clips at the base of the left neck and u nchanged spinal stimulator. PULMONARY/PLEURA: Improving left basilar atelectasis. Right lung remains clear. There is no pneumotho rax or pleural effusion. CARDIOMEDIASTINAL: Cardiac and mediastinal silhouettes are within normal limits. BONES/SOFT TISSUES: No acute osseous abnormality. The visible abdomen is normal. IMPRESSION: 1. Improving left basilar atelectasis. 2. Clear right lung. 3. Tubes and lines as above. Report Dictated By: Sushma Young at 05/15/2019 6:51 AM Report E-Signed By: Sushma Young at 05/15/2019 6:53 AM WSN:[id number]
[2019-05-15] MEDS: LABETALOL HCL 100 MG/20ML VIAL IVP PRN (08:16)
--- NOTE | 2019-05-15 08:18 | EKG ---
FACILITY: [facility] PATIENT NAME: PARVEEN MENDOZA : [id number] MR: [id number] V: [id number] EXAM DATE: ORDERING PHYSICIAN: GERRY MELGOZA TECHNOLOGIST: YOBANY Veloz Reason : QT Blood Pressure : / mmHG Vent. Rate : 077 BPM Atrial Rate : 077 BPM P-R Int : 146 ms QRS Dur : 064 ms QT Int : 472 ms P-R-T Axes : 058 041 107 degrees QTc Int : 534 ms Normal sinus rhythm Anterior infarct (cited on or before 15-MAY-2019) Prolonged QT Abnormal ECG When compared with ECG of 15-MAY-2019 04:41, No significant change was found Confirmed by DIMITRI LUGO ([id number]) on 05/15/2019 10:42:23 AM Referred By: KEVIN Confirmed By:DIMITRI LUGO
[2019-05-15] MEDS: PANTOPRAZOLE SOD 40 MG IV VIAL IVP SCH (08:29)
[2019-05-15] MEDS: ORAL SUCTION/CHLORHX/SWAB KIT MT SCH ×2 (08:29→21:15)
--- NOTE | 2019-05-15 09:24 | Antimicrobial Stewardship ---
Antimicrobial Time Out Antimicrobial Stewardship MD Service: Hospitalist Indications: Other (possible sepsis,encephalitis) Antimicrobial Used Rocephin, Ampicillin,Vancomycin, Acyclovir IV. Start Date: May 13, 2019 Culture Results: Yes (pending) Eligible for PO Conversion Eligable for PO Conversion: No (sedated, intubated.) LATASHA NAIDU May 15, 2019 09:24
[2019-05-15] MEDS: NS(*) 0.9% 1000 ML BAG 1,000 ML IV PRN ×2 (12:18→17:51)
--- NOTE | 2019-05-15 12:28 | Hospitalist Progress Note ---
Subjective Progress Notes Subjective This patient was admitted for altered mental status. She had no acute changes overnight. Patient Complains of: Cardiovascular: No: Chest Pain Respiratory: No: Shortness of Breath Physical Exam Vital Signs Date Time Temp Pulse Resp B/P (MAP) Pulse Ox O2 Delivery O2 Flow Rate FiO2 05/15/19 12:11 94 Mechanical Ventilator 25.0 05/15/19 12:09 82 05/15/19 12:00 98.6 14 161/90 (113) 05/12/19 19:30 3.0 Intake and Output 05/15/19 07:03 Intake Total 5845 ml Output Total 1800 ml Balance 4045 ml Intake IV Total 4189 ml Tube Feeding 1316 ml Tube Irrigant 340 ml Output Urine Total 1800 ml Neuro: Other (Sedated.) Cardiovascular: Regular Rate and Rhythm Respiratory: Other (Bilateral breath sounds present.) GI: Soft and Non-Tender Extremities: No Edema Result Diagram: 05/15/1944705/15/19447 Assessment and Plan Problems: (1) Encephalopathy Status: Acute Assessment & Plan: She presented with acute mental status changes the day of admission. May be secondary to ingestion (marijuana and opiates are positive and reportedly took her husbands old baclofen), but cannot exclude infectious causes. CT was negative for acute pathology (cannot do MRI due to pacemaker). No concerns from about suicidal ideation or other ingestions. Her CSF was clear and cultures were negative. She was started on empiric treatment with ampicillin, ceftriaxone, vancomycin, and acyclovir. The ampicillin and vancomycin were discontinued today. Plan to continue the acyclovir until HSV and West Nile results are negative. (2) Acute respiratory failure Assessment & Plan: She was intubated on 05/12. Attempts at weaning were unsuccessful yesterday. Today we are weaning sedation as tolerated and will perform CPAP trials. (3) Sepsis Assessment & Plan: She did have an event on 05/12 where she became febrile and her lactate was elevated. She was started on antibiotics as above. Her cultures have all been negative and we have not been able to identify a source of infection. She remains on ceftriaxone and acyclovir as above. (4) Nausea & vomiting Status: Acute Assessment & Plan: Etiology unclear. She had brown foul smelling vomitus yesterday morning. Afebrile. WBC remains elevated. KUB had a non-specific gas pattern. Bedside US showed a large bladder, so we did place Pacheco catheter. CT of abdomen and pelvis was rather unremarkable. She has been started on Protonix. (5) Chronic pain Status: Chronic Assessment & Plan: Reportedly recently stopped opiate pain medications. She has been on chronic gabapentin (100mg tid) and muscle relaxant (Zanaflex). She does have cervical/thoracic spine stimulator in place. (6) Autonomic dysfunction *Optional Permanent Comment*: Syncopal episodes Last Edited By: Sarah Voss MD on February 22, 2018 15:16 Status: Chronic Assessment & Plan: Unclear what the etiology would be. (7) Chronic kidney disease (CKD) stage G3a/A1, moderately decreased glomerular filtration rate (GFR) between 45-59 mL/min/1.73 square meter and albuminuria creatinine ratio less than 30 mg/g Exam Sepsis Risk: No Definite Risk DIMITRI LUGO DO May 15, 2019 12:28
[2019-05-15] MEDS ORDERED: VANCOMYCIN(*) 1 GM VIAL 1 GM, VANCOMYCIN (*) 0.5 GM VIAL 0.25 GM in NS(*) 0.9% 250 ML B... IVPB SCH (14:00)
--- NOTE | 2019-05-15 15:39 | Medical Nutrition Therapy ---
Nutrition Anthropometrics Height (Inches): 64.00 Height (Calculated Centimeters: 162.891709 Weight (Pounds): 184 Weight (Calculated Kilograms): 83.688 BMI: 28.7 [place]im Nutrition Score: Adequate [place] Nutrition Risk Score: 15 Dietary Referral Nutrition Risk Factors: Nutrition Risk Comment: Physical Findings Physical Appearance: Overweight BMI 25-29 Skin Appearance Skin Appearance: Edema Edema Location Modifier: Edema Location: Type of Edema: Degree of Edema: Gastrointestinal Symptoms GI Symtoms: Vomiting Tube Present: OG Bowel Sounds: Recent Bowel Pattern: Stool Characteristics: Nutritional Diagnosis Nutritional Risk Acuity 3: Fair Appetite Past Medical History: CKD Stage III, Chronic Pain, HTN, HLD Nutritional Acuity: 2-Moderate Nutrition Diagnosis: Inadequate Food Intake Nutrition Etiology: Physiological Causes Nutrition Problem/Etiology/Sym: ventilated/sedated Energy Requirement: 1801 (Recalculated using [place] [employer] Equation (ventilated pt)) Protein Requirement: 61 (0.8g/kg (CKD stage 3)) Fluid Requirement: 1801 (1mL/kcal) Diet Type: NPO (Nothing by Mouth), Tube Feeding (TF), Tube Feeding (Free Water) Nutrition Intervention: Incr diet as tolerated Nutritional Support Current Enteral / Parental: Tube Feeding Tube Feeding Formulas: Jevity 1cal/ml-Standard Tube Feeding Supplement Streng: Full Feeding Route: FT Placed Nasogastric Rate: 70 Current Duration: 24 Current Calories: 1781 Current Protein: 74 Current Lipids Calories: 58 Total Current Calories: 1781 + 480 (2261) Recommended Enteral / Parental: Tube Feeding Recommended Tube Feeding Formu: Osmolite 1cal/ml-Isotonic Tube Feeding Supplement Streng: Full Recommended Feeding Route: FT Placed Nasogastric Recommended Rate: 52 Recommended Duration: 24 Recommended Calories: 1320 (1320 + 480 propofol =(1800 total)) Recommended Protein: 58 Recommended Lipids Calories: 46 Nutrition Monitoring & Eval Nutrition Monitoring: Tolerance to EN, daily weights, BGs, electrolytes, Triglycerides RD Patient Assessment Time: [address] Assessment Type: Nutrition Support Consult Patient Nutrition Acuity: 2-Moderate Follow Up Date: May 18, 2019 Nutritional Comment: 05/12/19: Pt admit for AMS, recently discontinued opiate use for pain mgmt. Pertinent PMH include CKD stage III, HTN, HLD. Pt having bouts of nausea. Spoke with pt this afternoon briefly. He reports pt has been eating well at home no recent wt loss. Reviewed labs, Cre and BUN elevated, Na and Cl low, K+ WNR. When diet advances may need to limit protein. Will continue to follow.CHRISTINA 05/15/19: Pt started on EN 05/13. Recalculated energy needs using [place] [employer] equation for vented patients. Estimated energy needs: 1801 kcal and 61 g protein. Currently recieving Jevity at 70mL/hr. Provides 1781 kcal, 74 g Protein, 58 g Fat, 24g Fiber, and 1403mL H20. Pt also recieving propofol at 18.2mL/hr providing 480 additional calories. Tube feeding plus propofol provides 2261 calories. Pertinent active rx include vancomycin, ampicillin, and rocephin. IV fluids NaCl at 125mL/hr providing 3000mL/day. Pertinent labs K+ slighlty low, chloride slightly elevated. Recommend switch tube feeding to Osmolite 1.0 at 52mL/hr to meet energy needs and prevent overfeeding and prolongation of days on the vent. Will continue to monitor tolerance to EN.CECI MAHARAJ May 15, 2019 11:01
[2019-05-16] VITALS (78 sets, daily range): BP systolic 104–198; BP diastolic 60–116
[2019-05-16] MEDS: cefTRIAXone 2 GM VIAL IVP SCH ×2 (00:58→12:55)
[2019-05-16] MEDS: NS 0.9% IVPB SCH ×3 (00:59→17:17)
[2019-05-16] MEDS: ACYCLOVIR IVPB SCH ×3 (00:59→17:17)
[2019-05-16] MEDS: PROPOFOL(*)1000 MG/100 ML VIAL 100 ML IV PRN ×4 (05:07→20:47)
[2019-05-16] MEDS: NS(*) 0.9% 1000 ML BAG 1,000 ML IV PRN (05:07)
[2019-05-16 05:31] LABS: PLATELET COUNT, AUTOMATED 186 K/uL (150-450)
--- NOTE | 2019-05-16 05:33 | EKG ---
FACILITY: [facility] - [place] PATIENT NAME: PARVEEN MENDOZA : [id number] MR: [id number] V: [id number] EXAM DATE: ORDERING PHYSICIAN: IVONNE BROWN TECHNOLOGIST: DANIEL Test Reason : AM EKG Blood Pressure : / mmHG Vent. Rate : 084 BPM Atrial Rate : 084 BPM P-R Int : 144 ms QRS Dur : 066 ms QT Int : 446 ms P-R-T Axes : -10 016 -32 degrees QTc Int : 527 ms Normal sinus rhythm Anterolateral infarct (cited on or before 15-MAY-2019) Prolonged QT Abnormal ECG When compared with ECG of 15-MAY-2019 06:58, Questionable change in initial forces of Lateral leads Non-specific change in ST segment in Inferior leads T wave inversion now evident in Inferior leads Nonspecific T wave abnormality no longer evident in Lateral leads Confirmed by CLARITA MORENO ([id number]) on 05/16/2019 6:51:12 AM Referred By: Confirmed By:CLARITA MORENO
--- NOTE | 2019-05-16 06:29 | RADIOLOGY IMAGING REPORT ---
FACILITY: [facility] PATIENT NAME: Beata Langley : 1950 MR: [id number] V: [id number] EXAM DATE: ORDERING PHYSICIAN: DIMITRI LUGO TECHNOLOGIST: Location: [facility] Patient: Beata Langley : 1950 Visit/Account:[id number] Date of Sevice: 05/16/2019 CHEST SINGLE AP 05/16/2019 06:00 hours. HISTORY: Intubated. COMPARISON: 05/15/2019 and studies dating to 05/08/2008. TECHNIQUE: Portable AP view of the chest. FINDINGS: TUBES/LINES/HARDWARE: NG or OG tube terminates off the inferior x-ray, at least far as the body of th e stomach. ET tube terminates 6 cm above the betty. Pacemaker generator overlies the left axilla, an d leads terminate within the right atrium and right ventricle. There are external chest leads. Right IJ catheter terminates at the upper cavoatrial junction/lower superior vena cava. There are surgical clips at the base of the left neck. PULMONARY/PLEURA: Lungs are clear. There is no pneumothorax or pleural effusion. CARDIOMEDIASTINAL: Cardiac and mediastinal silhouettes are within normal limits. BONES/SOFT TISSUES: No acute osseous abnormality. The visible abdomen is normal. IMPRESSION: 1. No acute cardiopulmonary process. 2. Tubes and lines as above. Report Dictated By: Sushma Young at 05/16/2019 6:19 AM Report E-Signed By: Sushma Young at 05/16/2019 6:21 AM WSN:[id number]
[2019-05-16] MEDS ORDERED: NS(*) 0.9% 1000 ML BAG 1,000 ML IV PRN ×2 (07:38→08:31)
[2019-05-16] MEDS ORDERED: FUROSEMIDE 20 MG/2 ML VIAL IVP ONE ×2 (08:20→16:55)
--- NOTE | 2019-05-16 08:25 | Hospitalist Progress Note ---
Subjective Progress Notes Subjective Doing well for about 45 minutes with PS/PEEP only trials then becomes tachypneic. When sedation weaned down, the patient thrashes around, but not following commands. Physical Exam Vital Signs Date Time Temp Pulse Resp B/P (MAP) Pulse Ox O2 Delivery O2 Flow Rate FiO2 05/16/19 07:30 93 Mechanical Ventilator 25.0 05/16/19 07:30 84 12 05/16/19 06:00 144/81 (102) 05/16/19 04:45 98.8 05/12/19 19:30 3.0 Intake and Output 05/16/19 07:03 Intake Total 5715 ml Output Total 2305 ml Balance 3410 ml Intake IV Total 3830 ml Tube Feeding 1635 ml Tube Irrigant 250 ml Output Urine Total 2305 ml General Appearance: No Acute Distress Neuro: Other (Sedated and intubated) Eyes: Other (pupils about 2mm and equal) ENT: Moist Mucous Membranes Cardiovascular: Regular Rate and Rhythm Respiratory: Clear to Auscultation Extremities: Edema (1+ in feet/ankles) Result Diagram: 05/16/19 0500 05/16/19 0500 Assessment and Plan Problems: (1) Encephalopathy Status: Acute Assessment & Plan: She presented with acute mental status changes the day of admission. May be secondary to ingestion (marijuana and opiates are positive and reportedly took her husbands old baclofen), but cannot exclude infectious causes. CT was negative for acute pathology (cannot do MRI due to pacemaker). No concerns from about suicidal ideation or other ingestions. Her CSF was clear and cultures were negative. She was started on empiric treatment with ampicillin, ceftriaxone, vancomycin, and acyclovir. The ampicillin and vancomycin were discontinued on 05/15. Plan to continue the acyclovir until HSV and West Nile results are negative. She is on the ventilator for airway protec tion since 05/12. When sedation is weaned down, she has non-purposeful movement in all extremities, but not following commands. (2) Acute respiratory failure Assessment & Plan: She was intubated on 05/12 for airway protection. She is oxygenating and ventilating with minimal support. Tolerating TF. On pantoprazole for stress ulcer prophylaxis. Restarting enoxaparin today (held after LP). Attempts at weaning were unsuccessful yesterday. Today we are weaning sedation as tolerated and will perform CPAP trials. She is overall volume overloaded, so will start some diuresis today. (3) Sepsis Assessment & Plan: She did have an event on 05/12 where she became febrile and her lactate was elevated. She was started on antibiotics as above. Now afebrile and wbc wnl. Her cultures have all been negative and we have not been able to identify a source of infection. She remains on ceftriaxone and acyclovir as above. (4) Anemia Status: Acute Assessment & Plan: Hgb has progressively dropped since admission. MCV is elevated. Likely, there is a dilutional and acute illness component. She hasn't had a BM since admission. Will check B12/lillian te/iron/ferritin/reticulocyte count studies and check stool for occult blood. (5) Nausea & vomiting Status: Acute Assessment & Plan: Etiology unclear. She had brown foul smelling vomitus the day of admission. Afebrile. WBC now normal. KUB had a non-specific gas pattern. Bedside US showed a large bladder, so we did place Pacheco catheter. CT of abdomen and pelvis was rather unremarkable. She has been started on Protonix. (6) Chronic pain Status: Chronic Assessment & Plan: Reportedly recently stopped opiate pain medications. She has been on chronic gabapentin (100mg tid) and muscle relaxant (Zanaflex). She does have cervical/thoracic spine stimulator in place. (7) Autonomic dysfunction *Optional Permanent Comment*: Syncopal episodes Last Edited By: Sarah Voss MD on February 22, 2018 15:16 Status: Chronic Assessment & Plan: Unclear what the etiology would be. (8) Chronic kidney disease (CKD) stage G3a/A1, moderately decreased glomerular filtration rate (GFR) between 45-59 mL/min/1.73 square meter and albuminuria creatinine ratio less than 30 mg/g Exam Sepsis Risk: No Definite Risk HENRIK WORRELL MD May 16, 2019 08:25
[2019-05-16] MEDS: ORAL SUCTION/CHLORHX/SWAB KIT MT SCH ×2 (09:02→20:44)
[2019-05-16] MEDS: ENOXAPARIN 40 MG/0.4ML SYR SC SCH (09:02)
[2019-05-16] MEDS: PANTOPRAZOLE SOD 40 MG IV VIAL IVP SCH (09:04)
[2019-05-16] MEDS: POLYETHYLENE GLYCOL 17 GM PKT FT SCH (09:04)
[2019-05-16] MEDS: KCL (*) 20 MEQ/100 ML PREMIX 100 ML IV SCH ×2 (10:33→14:02)
[2019-05-16] MEDS: LABETALOL HCL 100 MG/20ML VIAL IVP PRN ×2 (14:54→20:45)
[2019-05-16] MEDS: GABAPENTIN 100 MG CAP FT SCH (22:10)
[2019-05-16] MEDS: DULoxetine HCL 30 MG CAPCR PO SCH (22:10)
[2019-05-17] VITALS (58 sets, daily range): BP systolic 137–186; BP diastolic 91–141
[2019-05-17] MEDS: cefTRIAXone 2 GM VIAL IVP SCH (01:37)
[2019-05-17] MEDS: PROPOFOL(*)1000 MG/100 ML VIAL 100 ML IV PRN (01:39)
[2019-05-17] MEDS: ACYCLOVIR IVPB SCH (01:39)
[2019-05-17] MEDS: NS 0.9% IVPB SCH (01:39)
--- NOTE | 2019-05-17 06:56 | RADIOLOGY IMAGING REPORT ---
FACILITY: [facility] - [place] PATIENT NAME: Beata Langley : 1950 MR: [id number] V: [id number] EXAM DATE: ORDERING PHYSICIAN: HENRIK WORRELL TECHNOLOGIST: Location: [facility] [place] Patient: Beata Langley : 1950 Visit/Account:[id number] Date of Sevice: 05/17/2019 CHEST SINGLE AP 05/17/2019 06:00 hours. HISTORY: Respiratory failure. Follow-up. COMPARISON: 05/16/2019 and studies dating to 05/08/2008. TECHNIQUE: Portable AP view of the chest. FINDINGS: TUBES/LINES/HARDWARE: ET tube terminates 7 cm above the betty. NG or OG tube terminates off the infe rior x-ray, at least as far as the body of the stomach. Pacemaker generator overlies the left lateral upper chest, and leads terminate within the right atrium and right ventricle. Spinal stimulator is u nchanged. Surgical clips at the base of the left neck are stable. Right IJ catheter terminates in the upper superior vena cava. There are external chest leads. PULMONARY/PLEURA: Lungs are clear. There is no pneumothorax or pleural effusion. CARDIOMEDIASTINAL: Cardiac and mediastinal silhouettes are within normal limits. There is mild aortic calcification. BONES/SOFT TISSUES: No acute osseous abnormality. The visible abdomen is normal. IMPRESSION: 1. No significant interval change. 2. Tubes and lines as above. Report Dictated By: Sushma Young at 05/17/2019 6:46 AM Report E-Signed By: Sushma Young at 05/17/2019 6:48 AM WSN:[id number]
[2019-05-17] MEDS: LABETALOL HCL 100 MG/20ML VIAL IVP PRN ×3 (07:42→20:29)
[2019-05-17] MEDS: POLYETHYLENE GLYCOL 17 GM PKT FT SCH (07:46)
[2019-05-17] MEDS: PANTOPRAZOLE SOD 40 MG IV VIAL IVP SCH (07:46)
[2019-05-17] MEDS: GABAPENTIN 100 MG CAP FT SCH (07:46)
[2019-05-17] MEDS: ENOXAPARIN 40 MG/0.4ML SYR SC SCH (07:47)
--- NOTE | 2019-05-17 08:03 | Hospitalist Progress Note ---
Subjective Progress Notes Subjective She is awake on ventilator. She is able to follow simple commands. She has tolerated CPAP trials without problems. Physical Exam Vital Signs Date Time Temp Pulse Resp B/P (MAP) Pulse Ox O2 Delivery O2 Flow Rate FiO2 05/17/19 07:12 92 Mechanical Ventilator 25.0 05/17/19 07:12 86 15 05/17/19 06:00 183/111 (135) 05/17/19 05:00 98.4 Intake and Output 05/17/19 07:03 Intake Total 4323.9 ml Output Total 5650 ml Balance -1326.1 ml Intake IV Total 2625.9 ml Tube Feeding 1373 ml Tube Irrigant 325 ml Output Urine Total 5650 ml General Appearance: Awake Neuro: Other (some weakness in hide and skin colerer strength) ENT: Other (ET/OG tubes in place) Cardiovascular: Regular Rate and Rhythm Respiratory: Clear to Auscultation GI: Other (soft/BS present) Extremities: Warm, Perfused, Edema (trace-1+ both LE/UE) Result Diagram: 05/17/19 0505 05/17/19 0505 [facility] *LIVE* [address] [place] [address] FLETCHER FAROOQ M.D., DIRECTOR OF LABORATORY SERVICES DILLON MORA M.D., PATHOLOGIST RUN DATE: 05/16/19 Specimen Inquiry Report PAGE 1 RUN TIME: 1029 PATIENT: PARVEEN MENDOZA ACCT: [id number] LOC: ICU U: [id number] AGE/SX: 69/F ROOM: 2260 RE05/11/[address]: HENRIK WORRELL MD : 1950 BED: 260 DIS: STATUS: ADM IN TLOC: SPEC #: [id number] ISABELLE: 05/13/19 STATUS: NIESHA REQ #: [id number] RECD: 05/13/[address] [facility] DR: IVONNE BROWN MD SOURCE: CSF ENTR: 05/13/[address] [facility] DR: SARAH VOSS MD SPDESC: HENRIK WORRELL MD, NATHAN DO ORDERED: CULT CSF & GS COMMENTS: Has specimen been collected/obtained? Y Procedure Result Verified GRAM STAIN Final 05/13/19-1534 NO WHITE BLOOD CELLS NO ORGANISMS SEEN CSF CULTURE Final 05/16/19-1028 No growth after 3 days Assessment and Plan Problems: (1) Encephalopathy Status: Acute Assessment & Plan: She presented with acute mental status changes the day of ad mission. May be secondary to ingestion (marijuana and opiates are positive and reportedly took her husbands old baclofen). There does not appear to be an infectious cause. Cultures are all negative. CT was negative for acute pathology (cannot do MRI due to pacemaker). No concerns from about suicidal ideation or other ingestions. Her CSF was clear and cultures are negative. HSV PCR on CSF is negative. She was started on empiric treatment with ampicillin, ceftriaxone, vancomycin, and acyclovir. The ampicillin and vancomycin were discontinued on 05/15. Plan to discontinue the acyclovir now that HSV is negative. She has been on the ventilator for airway protection since 05/12. She is now more purposeful with her movements and following commands. We should be able to extubate today. (2) Acute respiratory failure Assessment & Plan: She was intubated on 05/12 for airway protection. She is oxygenating and ventilating with minimal support. Tolerating TF. On pantoprazole for stress ulcer prophylaxis. She is on enoxaparin (held for LP). Attempts at weaning were unsuccessful yesterday. Today it appears she should be able to be extubated. (3) Sepsis Assessment & Plan: She did have an event on 05/12 where she became febrile and her lactate was elevated. She was started on antibiotics as above. Now afebrile and WBC count is normal. Her cultures have all been negative and we have not been able to identify a source of infection. She has remained on ceftriaxone and acyclovir as above. We should be able to stop the antibiotic and antiviral today. (4) Anemia Status: Acute Assessment & Plan: Hgb/Hct had progressively dropped since admission. MCV is elevated. Likely, there is a dilutional and acute illness component. She hasn't had a BM since admission. B12/folate pending. Her iron studies do not appear to reflect deficiency. Her reticulocyte count is on lower side for degree of anemia. She has not had a stool to check for occult blood. (5) Nausea & vomiting Status: Acute Assessment & Plan: Etiology unclear. She had brown foul smelling vomitus the day of admission. Afebrile. WBC now normal. KUB had a non-specific gas pattern. Bedside US showed a large bladder, so we did place Pacehco catheter. CT of abdomen and pelvis was rather unremarkable. She has been started on Protonix. (6) Chronic pain Status: Chronic Assessment & Plan: Reportedly recently stopped opiate pain medications. She has been on chronic gabapentin (100mg TID) and muscle relaxant (Zanaflex). She does have cervical/thoracic spine stimulator in place. (7) Autonomic dysfunction *Optional Permanent Comment*: Syncopal episodes Last Edited By: Sarah Voss MD on February 22, 2018 15:16 Status: Chronic Assessment & Plan: Unclear what the etiology would be. (8) Chronic kidney disease (CKD) stage G3a/A1, moderately decreased glomerular filtration rate (GFR) between 45-59 mL/min/1.73 square meter and albuminuria creatinine ratio less than 30 mg/g Exam Sepsis Risk: No Definite Risk IVONNE BROWN MD May 17, 2019 08:03
[2019-05-17 08:17] LABS: PLATELET COUNT, AUTOMATED 222 K/uL (150-450)
[2019-05-17] MEDS: POLYETHYLENE GLYCOL 17 GM PKT PO SCH (09:00)
[2019-05-17] MEDS: GABAPENTIN 100 MG CAP PO SCH ×3 (09:00→20:29)
[2019-05-17] MEDS: NS(*) 0.9% 1000 ML BAG 1,000 ML IV PRN ×2 (12:08→22:26)
--- NOTE | 2019-05-17 13:33 | NUR ---
Speech Language Pathology Encounter DINKEY ENGINEER to ICU following receipt of orders to obtain clinical swallow eval. RN reporting need to administer meds, unable to provide non-orally. Elected safest route of delivery, with meds crushed and immersed in a small quantity of a pureed solid to support bolus cohesion. Pt exhibited gag reflex, possible cough response. Material was suctioned from oral cavity. Pt also with weak and breathy vocal quality, weak cough. I would question this pt's ability to consistently protect her airway. Recommend continuation of NPO, including holding oral medications if possible. Will defer further assessment pending at least 24 hrs s/p extubation.
--- NOTE | 2019-05-17 14:38 | NUR ---
Physical Therapy Impression PT/OT co-treat for eval followed by treatment session with nursing present as well for pt safety. Time split for billing purpose. Pt unable to answer questions currently but is responding appropriately to yes/no questions and is able to follow verbal instructions. Will defer home environment portion of eval until family member is present to provide information. Pt does move B) LE's with verbal cues and even scoots bottom over to reposition for comfort while in bed. Pt demos some increased tone with extreme plantar flexion of feet when returned to bed and positioned with LE's extended. Flexion of the hip resolves this tone. Unable to determine at this time if tone is related to a neurological issue or if pt is volitionally stretching. Pt is completely flaccid with B) UE's and does not move them to assist with any support during supine to sit or while seated at edge of bed. PT/OT worked to place them with palms down and to support some weight bearing while seated, however, pt was not purposefully participating for much of this skill. PT additionally placed pt's feet in contact with supportive surface while in supported sitting at EOB and provided joint compression/approximation to facilitate improved motor control of LE's as well. Pt did purposefully cross and uncross her ankles while seated. Three person Max/Total assist was then required to return pt back to supine in bed. BP's monitored throughout and remained in safe range. Physical Therapy Goals 1. Pt to be Min assist for sit to/from supine transfes and Bed mobility 2. Pt to be Min/CGA for sit to/from stand transfers 3. Pt to be Min/CGA for ambulation x 50' with least restrictive device 4. Pt to participate in AAROM/AROM for B) LE's with verbal cues and Min A Patient's Goals
[2019-05-17] MEDS: ACETAMINOPHEN(*)1000 MG/100 ML 100 ML IVPB PRN ×2 (16:13→22:26)
[2019-05-17] MEDS: DULoxetine HCL 30 MG CAPCR PO SCH (20:29)
[2019-05-18] VITALS (42 sets, daily range): BP systolic 138–190; BP diastolic 85–133
[2019-05-18] MEDS: ACETAMINOPHEN(*)1000 MG/100 ML 100 ML IVPB PRN ×2 (02:37→09:02)
[2019-05-18 05:27] LABS: PLATELET COUNT, AUTOMATED 213 K/uL (150-450)
--- NOTE | 2019-05-18 08:27 | Hospitalist Progress Note ---
Subjective Progress Notes Subjective This patient was admitted for altered mental status. She had no acute changes overnight. Patient Complains of: Cardiovascular: No: Chest Pain Respiratory: No: Shortness of Breath Physical Exam Vital Signs Date Time Temp Pulse Resp B/P (MAP) Pulse Ox O2 Delivery O2 Flow Rate FiO2 05/18/19 08:00 83 05/18/19 07:20 92 Nasal Cannula 3.0 05/18/19 06:30 19 166/104 (124) 05/18/19 05:30 98.2 05/17/19 08:00 25.0 Intake and Output 05/18/19 07:03 Intake Total 2584.6 ml Output Total 4420 ml Balance -1835.4 ml Intake IV Total 2584.6 ml Output Urine Total 4420 ml # Bowel Movements 2 Cardiovascular: Regular Rate and Rhythm Respiratory: Clear to Auscultation Result Diagram: 05/18/1944905/18/19449 Assessment and Plan Problems: (1) Encephalopathy Status: Acute Assessment & Plan: She presented with acute mental status changes the day of admission. May be secondary to ingestion (marijuana and opiates are positive and reportedly took her husbands old baclofen). There does not appear to be an infectious cause. Cultures are all negative. CT was negative for acute pathology (cannot do MRI due to pacemaker). No concerns from about suicidal ideation or other ingestions. Her CSF was clear and cultures are negative. HSV PCR on CSF is negative. She was started on empiric treatment with ampicillin, ce ftriaxone, vancomycin, and acyclovir. All of the antibiotics and antivirals have been discontinued. (2) Acute respiratory failure Assessment & Plan: She was intubated on 05/12 for airway protection. She was extubated on 05/17. (3) Sepsis Assessment & Plan: She did have an event on 05/12 where she became febrile and her lactate was elevated. She was started on antibiotics as above. Now afebrile and WBC count is normal. Her cultures have all been negative and we have not been able to identify a source of infection. All antimicrobials have been discontinued. (4) Anemia Status: Acute Assessment & Plan: Her hgb has been low, but stable. She has not required transfusion. (5) Nausea & vomiting Status: Acute Assessment & Plan: Resolved. (6) Chronic pain Status: Chronic Assessment & Plan: Reportedly recently stopped opiate pain medications. She has been on chronic gabapentin (100mg TID) and muscle relaxant (Zanaflex). She does have cervical/thoracic spine stimulator in place. (7) Autonomic dysfunction *Optional Permanent Comment*: Syncopal episodes Last Edited By: Sarah Voss MD on February 22, 2018 15:16 Status: Chronic Assessment & Plan: Unclear what the etiology would be. (8) Chronic kidney disease (CKD) stage G3a/A1, moderately decreased glomerular filtration rate (GFR) between 45-59 mL/min/1.73 square meter and albuminuria creatinine ratio less than 30 mg/g Exam Sepsis Risk: No Definite Risk DIMITRI LUGO DO May 18, 2019 08:27
[2019-05-18] MEDS: GABAPENTIN 100 MG CAP PO SCH ×3 (09:00→20:58)
[2019-05-18] MEDS: ENOXAPARIN 40 MG/0.4ML SYR SC SCH (09:00)
[2019-05-18] MEDS: PANTOPRAZOLE SOD 40 MG IV VIAL IVP SCH (09:00)
[2019-05-18] MEDS: POLYETHYLENE GLYCOL 17 GM PKT PO SCH (09:00)
--- NOTE | 2019-05-18 09:06 | NUR ---
Unable to give PO medication due to patient swallowing difficulty. Speech to work this patient today and sebastian
[2019-05-18] MEDS: NS(*) 0.9% 1000 ML BAG 1,000 ML IV PRN ×2 (09:50→20:58)
--- NOTE | 2019-05-18 11:38 | Medical Nutrition Therapy ---
Nutrition Anthropometrics Height (Inches): 64.00 Height (Calculated Centimeters: 162.546341 Weight (Pounds): 182 Weight (Calculated Kilograms): 82.554 BMI: 28.7 Ephraim Nutrition Score: Probably Inadequate Ephraim Nutrition Risk Score: 15 Dietary Referral Nutrition Risk Factors: Nutrition Risk Comment: Physical Findings Physical Appearance: Overweight BMI 25-29 Skin Appearance Skin Appearance: Edema Edema Location Modifier: Both Edema Location: Arm Type of Edema: Degree of Edema: Gastrointestinal Symptoms GI Symtoms: Vomiting Tube Present: OG Bowel Sounds: Recent Bowel Pattern: Stool Characteristics: Nutritional Diagnosis Nutritional Risk Acuity 2: Swallowing Problem Past Medical History: CKD Stage III, Chronic Pain, HTN, HLD Nutritional Acuity: 2-Moderate Nutrition Diagnosis: Inadequate Food Intake Nutrition Etiology: Physiological Causes Nutrition Problem/Etiology/Sym: issues swallowing, status post-extubation. Energy Requirement: 1801 (Recalculated using Mikie State Equation (ventilated pt)) Protein Requirement: 61 (0.8g/kg (CKD stage 3)) Fluid Requirement: 1801 (1mL/kcal) Diet Type: NPO (Nothing by Mouth), Clear Liquids Nutrition Intervention: Incr diet as tolerated Diet Comment To RSA: Offer Ensure Clear as appropriate. Nutrition Monitoring & Eval Nutrition Goals: Eat 75-100% Meal RD Patient Assessment Time: [address] Assessment Type: RD Re-Assessment Patient Nutrition Acuity: 2-Moderate Follow Up Date: May 23, 2019 Nutritional Comment: 05/12/19: Pt admit for AMS, recently discontinued opiate use for pain mgmt. Pertinent PMH include CKD stage III, HTN, HLD. Pt having bouts of nausea. Spoke with pt this afternoon briefly. He reports pt has been eating well at home no recent wt loss. Reviewed labs, Cre and BUN elevated, Na and Cl low, K+ WNR. When diet advances may need to limit protein. Will continue to follow.CHRISTINA 05/15/19: Pt started on EN 05/13. Recalculated energy needs using Mikie State equation for vented patients. Estimated energy needs: 1801 kcal and 61 g protein. Currently recieving Jevity at 70mL/hr. Provides 1781 kcal, 74 g Protein, 58 g Fat, 24g Fiber, and 1403mL H20. Pt also recieving propofol at 18.2mL/hr providing 480 additional calories. Tube feeding plus propofol provides 2261 calories. Pertinent active rx include vancomycin, ampicillin, and rocephin. IV fluids NaCl at 125mL/hr providing 3000mL/day. Pertinent labs K+ slighlty low, chloride slightly elevated. Recommend switch tube feeding to Osmolite 1.0 at 52mL/hr to meet energy needs and prevent overfeeding and prolongation of days on the vent. Will continue to monitor tolerance to EN.CHRISTINA 05/18/19: Spoke with RN, pt had difficulties swallowing applesauce yesterday. Swallowing anticipated to improve post-sedation. Lab values show a low H&H. Hyperactive bowel sounds are present. Will monitor swallowing function, intake, and weight. -CECI MAHARAJ May 18, 2019 09:39
--- NOTE | 2019-05-18 13:42 | NUR ---
Physical Therapy Impression PT/OT co-treat for pt safety. Pt has been restless per nursing and is requesting to sit at EOB. Pt required 2 person Max assist for transfer supine to/from sit. Once scooted to edge of bed with feet in contact with floor, pt was able to maintain sitting balance with only CGA/Min assist at times for a total of 15 minutes. Pt requested to return to supine prior to sponge bathing. Pt demos significantly more active participation today with UE's and was able to purposefully scoot back onto bed using B) UE's for support and leaning forward x 2 reps. Physical Therapy Goals 1. Pt to be Min assist for sit to/from supine transfes and Bed mobility 2. Pt to be Min/CGA for sit to/from stand transfers 3. Pt to be Min/CGA for ambulation x 50' with least restrictive device 4. Pt to participate in AAROM/AROM for B) LE's with verbal cues and Min A Patient's Goals
--- NOTE | 2019-05-18 15:28 | NUR ---
Occupational Therapy Impression Max Ax2 bed mobility supine to sit and sit to supine. Improved AROM/AAROM noted this date in bilateral UEs. Tolerated sitting EOB [id number] with CGA. Improved postural control and initiation of extremities for scooting back on bed.Pt demonstrating improved strength and tolerance this date. VSS throughout. Recommendations pending progress. Occupational Therapy Goals 1) Pt will be Mod A UB/LB dressing. 2) Pt will be Mod A grooming/hygiene. 3) Pt will be Mod A toilet task. Patient's Goal
--- NOTE | 2019-05-18 16:41 | SPEECH INITIAL EVALUATION ---
BEDSIDE DYSPHAGIA water plant maintenance mechanic: Lilia Tolbert MS, CCC-PATIENT RELATIONS LIAISON Type of Assessment: Bedside dysphagia evaluation Patient: Beata Langley : 1950 Evaluation Date: 05/18/2019 BACKGROUND The patient is a 69 year old female admitted to [facility] with mental status change. She was intubated on 05-12-19 and extubated 05-18-19 . A swallow assessment was 05-18-19 at +24 hours post extubation. Primary Medical Diagnosis: mental status change Medical History: see medical chart Pain Scale (0-10): 0 with swallow LOC / Participation: Alert, participated in all evaluation tasks. Follows Instructions: Yes Orientation: Alert, appears oriented to place, self, situation, less oriented to time. Functional Communication Deficits impact swallow function/safety, or response to therapy: No DYSPHAGIA ASSESSMENT Sialorrhea: No Xerostomia: No Supplemental Oxygen Use: no COPD Dx: No Pain with Swallow: Denies Pt was seen at the bedside for clinical swallowing assessment. Pt was alert and participatory. Cognition appeared largely intact though not formally assessed. Significant vocal defiicits are present with harsh/hoarse voice as well as aphonic breaks , poor sustained vowel production of approximately 3 seconds with poor quality voice. Oral mechanism examination was unremarkable apart from poor dentition with missing upper and lower teeth. Administered PO trials of thin liquids, pureed solids, and mechanically soft solids. Overall, the pt presents with mild to moderate dysphagia with mild oral and moderate pharyngeal stage deficits characterized by anterior oral stasis, poor vocal quality, frequent throat clearing, coughing with foods. Advanced and regular solids were not attempted. Pt is considered at increased risk of aspiration at this time d/t pharyngeal deficits. Recommend regular/thin liquids of H2O only (IDDSI 0) and pureed foods (IDDS 4) at this time. It is recommended that medications be crushed and immersed in pureed solids to assist with bolus containment/cohesion. ST will re-assess in 24 hours to recommend any appropriate upgrades. OVERALL IMPRESSION Mild oral dysphagia with moderate pharyngeal dysphagia. HERMINIO: Level 3 : Mild-moderate dysphagiapotential for aspiration exists but is diminished by specific swallow techniques and a modified diet. Time for eating is significantly increased; thus supplemental nutrition may be indicated. Aspiration Risk: Elevated d/t suspected s/s consistent with oral and pharyngeal dysphagia RECOMMENDATIONS 1. Diet: Puree diet (IDDS 4), regular/thin liquids H2O only (IDDS 0) 2. Medications: crushed with pureed 3. ST 4xwk 4. Modified barium swallow study may be appropriate once patient is medically stronger. Speech Therapy Need ST will continue monitor diet tolerance, provide diet upgrade recommendations as indicated, and instruct patient/caregiver re: safe swallow strategies to minimize risk for aspiration Rehabilitation Prognosis: Good PLAN OF CARE STG 1. Patient and Caregivers will demonstrate comprehension of compensatory swallow strategies during participation in mealtime activities with 90% acc when provided with min verbal cues to support safe tolerance of least restrictive diet. 2. Patient will demonstrate decreased symptoms of vf dysfunction including improved vocal quality as demonstrated by follow-up completion of Perceptual Rating Scale with the following scores Has a hoarse/scratchy voice less than 20% of the time (current 81.4% of the time) Has a strained voice less than 20% of the time (current 78.7% of the time) LTG 1. The patient will demonstrate decreased risk for aspiration pneumonia and decreased s/s of oropharyngeal dysphagia by scoring a 3 or lower on the EAT-10 Prognosis: Good. Positive prognostics indicators include patient motivation and high level of self-awareness. Thank you for this referral. Please call [phone] with any questions or concerns. Lilia Tolbert M.S., CCC-PATIENT RELATIONS LIAISON CC: ARIEL
[2019-05-18] MEDS: DULoxetine HCL 30 MG CAPCR PO SCH (20:58)
[2019-05-18] MEDS: LABETALOL HCL 100 MG/20ML VIAL IVP PRN (23:12)
[2019-05-19] VITALS (13 sets, daily range): BP systolic 140–182; BP diastolic 72–142
[2019-05-19 05:18] LABS: PLATELET COUNT, AUTOMATED 217 K/uL (150-450)
[2019-05-19] MEDS: LABETALOL HCL 100 MG/20ML VIAL IVP PRN (06:11)
[2019-05-19] MEDS ORDERED: FUROSEMIDE 40 MG/4 ML VIAL IVP ONE (08:10)
--- NOTE | 2019-05-19 08:19 | Hospitalist Progress Note ---
Subjective Progress Notes Subjective She denies any pain, nausea or SOB. Staff reports improving mental status. Physical Exam Vital Signs Date Time Temp Pulse Resp B/P (MAP) Pulse Ox O2 Delivery O2 Flow Rate FiO2 05/19/19 06:00 92 15 182/131 (148) 98 Nasal Cannula 3.0 05/19/19 03:00 99.2 05/17/19 08:00 25.0 Intake and Output 05/19/19 07:03 Intake Total 2119 ml Output Total 2200 ml Balance -81 ml Intake Oral 100 ml IV Total 2019 ml Output Urine Total 2200 ml # Bowel Movements 2 General Appearance: Alert, Awake, No Acute Distress Neuro: Other (Knows where she is, month. She doesn't know what led to her admission, but knows she was in a "coma" for a couple of days.) Cardiovascular: Regular Rate and Rhythm Respiratory: Clear to Auscultation Extremities: No Edema Integumentary: No Jaundice, No Cyanosis Result Diagram: 05/19/19 0506 05/19/19 0506 Assessment and Plan Problems: (1) Encephalopathy Status: Acute Assessment & Plan: She presented with acute mental status changes the day of admission. May be secondary to ingestion (marijuana and opiates are positive and reportedly took her husbands old baclofen). There does not appear to be an infectious cause. Cultures are all negative. CT was negative for acute pathology (cannot do MRI due to pacemaker). No concerns from about suicidal ideation or other ingestions. Her CSF was clear and cultures are negative. HSV PCR on CSF is negative. She was started on empiric treatment with ampicillin, ceftriaxone, vancomycin, and acyclovir. All of the antibiotics and antivirals have been discontinued. Her mental status is slowing improving since extubation. She is a 2 person maximum assist with therapy and an aspiration risk based on ST evaluation. She can be transferred to the floor. If she passes ST, then she can be advanced on her diet. (2) Acute respiratory failure Assessment & Plan: She was intubated on 05/12 for airway protection. She was extubated on 05/17. She likely has some pulmonary congestion secondary to IVF. Will give a dose of Lasix today. (3) Sepsis Assessment & Plan: She did have an event on 05/12 where she became febrile and her lactate was elevated. She was started on antibiotics as above. Now afebrile and WBC count is normal. Her cultures have all been negative and we have not been able to identify a source of infection. All antimicrobials have been discontinued. (4) Anemia Status: Acute Assessment & Plan: Her hgb has been low, but stable. MCV is elevated. Likely, there is a dilutional and acute illness component. B12/folate/iron/ferritin/reticulocyte count studies are unremarkable. (5) Nausea & vomiting Status: Acute Assessment & Plan: Resolved. (6) Chronic pain Status: Chronic Assessment & Plan: Reportedly recently stopped opiate pain medications. She has been on chronic gabapentin (100mg TID), Cymbalta and muscle relaxant (Zanaflex). Gabapentin and Cymbalta restarted. She does have cervical/thoracic spine stimulator in place. (7) Autonomic dysfunction *Optional Permanent Comment*: Syncopal episodes Last Edited By: Sarah Voss MD on February 22, 2018 15:16 Status: Chronic Assessment & Plan: Unclear what the etiology would be. (8) Chronic kidney disease (CKD) stage G3a/A1, moderately decreased glomerular filtration rate (GFR) between 45-59 mL/min/1.73 square meter and albuminuria creatinine ratio less than 30 mg/g Exam Sepsis Risk: No Definite Risk HENRIK WORRELL MD May 19, 2019 08:19
[2019-05-19] MEDS: ENOXAPARIN 40 MG/0.4ML SYR SC SCH (08:53)
[2019-05-19] MEDS: GABAPENTIN 100 MG CAP PO SCH ×3 (08:55→20:23)
[2019-05-19] MEDS: PANTOPRAZOLE SOD 40 MG IV VIAL IVP SCH (08:57)
[2019-05-19] MEDS: POLYETHYLENE GLYCOL 17 GM PKT PO SCH (09:00)
[2019-05-19] MEDS: KCL (*) 20 MEQ/100 ML PREMIX 100 ML IV SCH ×2 (09:04→11:53)
--- NOTE | 2019-05-19 10:07 | NUR ---
Physical Therapy Impression PT/OT co treat for patient safety with time split for billing purposes. Pt requires Quan to transition supine to sit. Quan for STS transfer with use of EZ lift, with verbal cues provided. Pt tolerated standing in EZ lift with no evidence of LE buckling. Pt left in chair with all needs met, call light within reach and tabs in place. Rec STSAR Physical Therapy Goals 1. Pt to be Min assist for sit to/from supine transfes and Bed mobility 2. Pt to be Min/CGA for sit to/from stand transfers 3. Pt to be Min/CGA for ambulation x 50' with least restrictive device 4. Pt to participate in AAROM/AROM for B) LE's with verbal cues and Min A Patient's Goals
--- NOTE | 2019-05-19 11:00 | NUR ---
Occupational Therapy Impression Min A supine to sit. CGA sit<>stand from bed with EZ lift. Min Ax2 sit<>stand from toilet with EZ lift. Max A toileting. Pt seated up in chair at end of tx with all needs met. Improved initiation and tolerance for ADLs this date. Recommendations pending progress. Occupational Therapy Goals 1) Pt will be Mod A UB/LB dressing. 2) Pt will be Mod A grooming/hygiene. 3) Pt will be Mod A toilet task. Patient's Goal
[2019-05-19] MEDS: NS(*) 0.9% 1000 ML BAG 1,000 ML IV PRN (11:53)
[2019-05-19] MEDS ORDERED: ENALAPRILAT 1.25 MG/ML VIAL IVP SCH (12:00)
[2019-05-19] MEDS: DULoxetine HCL 30 MG CAPCR PO SCH (20:23)
[2019-05-20] MEDS: NS(*) 0.9% 1000 ML BAG 1,000 ML IV PRN (02:03)
[2019-05-20 02:06] VITALS: BP 142/102
[2019-05-20] MEDS: ACETAMINOPHEN(*)1000 MG/100 ML 100 ML IVPB PRN ×2 (05:28→21:27)
[2019-05-20] MEDS: POLYETHYLENE GLYCOL 17 GM PKT PO SCH (09:00)
[2019-05-20] MEDS: PANTOPRAZOLE SOD 40 MG IV VIAL IVP SCH (09:20)
[2019-05-20] MEDS: GABAPENTIN 100 MG CAP PO SCH ×3 (09:20→21:27)
[2019-05-20] MEDS: ENOXAPARIN 40 MG/0.4ML SYR SC SCH (09:21)
--- NOTE | 2019-05-20 10:29 | NUR ---
Physical Therapy Impression Pt with drastic improvement in tolerance to functional mobility. CGA for STS transfer with RW. AMbulation x60' with RW and CGA, with good safety demonstrated. SpO2 WNL on 3L O2. Rec that pt ambulate with nursing staff as tolerated. Rec short term subacute rehab or HHC -- pending progress. Physical Therapy Goals 1. Pt to be Min assist for sit to/from supine transfes and Bed mobility 2. Pt to be Min/CGA for sit to/from stand transfers 3. Pt to be Min/CGA for ambulation x 50' with least restrictive device 4. Pt to participate in AAROM/AROM for B) LE's with verbal cues and Min A Patient's Goals
--- NOTE | 2019-05-20 10:34 | Hospitalist Progress Note ---
Subjective Progress Notes Subjective She is awake and alert. She reports feeling "good". Physical Exam Vital Signs Date Time Temp Pulse Resp B/P (MAP) Pulse Ox O2 Delivery O2 Flow Rate FiO2 05/20/19 04:12 86 05/20/19 02:06 98.1 91 16 142/102 (115) Nasal Cannula 2.0 05/17/19 08:00 25.0 Intake and Output 05/20/19 07:03 Intake Total 1366 ml Output Total 2875 ml Balance -1509 ml Intake Oral 100 ml IV Total 1266 ml Output Urine Total 2875 ml # Bowel Movements 3 General Appearance: Alert, Awake Cardiovascular: Regular Rate and Rhythm (with systolic murmur), No Edema Respiratory: Clear to Auscultation GI: Soft and Non-Tender Extremities: Warm Integumentary: Skin Intact without Lesion / Mass Psych: Alert & Oriented X3 Result Diagram: 05/19/19 0506 05/19/19 0506 Assessment and Plan Problems: (1) Encephalopathy Status: Acute Assessment & Plan: She presented with acute mental status changes the day of admission. May be secondary to ingestion (marijuana and opiates are positive and reportedly took her husbands old baclofen). There does not appear to be an infectious cause. Cultures are all negative. CT was negative for acute pathology (cannot do MRI due to pacemaker). No concerns from about suicidal ideation or other ingestions. Her CSF was clear and cultures are negative. HSV PCR on CSF is negative. She was started on empiric treatment with ampicillin, ceftriaxone, vancomycin, and acyclovir. All of the antibiotics and antivirals have been discontinued. Her mental status is slowing improving since extubation. Her strength is also improving. Speech/Swallowing is following and anticipates advancing her diet. No changes at this time. (2) Acute respiratory failure Assessment & Plan: She was intubated on 05/12 for airway protection. She was extubated on 05/17. She likely had some pulmonary congestion secondary to IVF. She did respond to a dose of Lasix yesterday. (3) Sepsis Assessment & Plan: She did have an event on 05/12 where she became febrile and her lactate was elevated. She was started on antibiotics as above. Now afebrile and WBC count is normal. Her cultures have all been negative and we have not been able to identify a source of infection. All antimicrobials have been discontinued. (4) Anemia Status: Acute Assessment & Plan: Her hgb has been low, but stable. MCV is elevated. Likely, there is a dilutional and acute illness component. B12/folate/iron/ferritin/reticulocyte count studies are unremarkable. (5) Nausea & vomiting Status: Acute Assessment & Plan: Resolved. (6) Chronic pain Status: Chronic Assessment & Plan: Reportedly recently stopped opiate pain medications. She has been on chronic gabapentin (100mg TID), Cymbalta and muscle relaxant (Zanaflex). Gabapentin and Cymbalta restarted. She does have cervical/thoracic spine stimulator in place. (7) Autonomic dysfunction *Optional Permanent Comment*: Syncopal episodes Last Edited By: Sarah Voss MD on February 22, 2018 15:16 Status: Chronic Assessment & Plan: The underlying etiology has not been determined. She has been evaluated at [facility]. (8) Chronic kidney disease (CKD) stage G3a/A1, moderately decreased glomerular filtration rate (GFR) between 45-59 mL/min/1.73 square meter and albuminuria creatinine ratio less than 30 mg/g Assessment & Plan: Creatinine is normal at 0.8. Exam Sepsis Risk: No Definite Risk IVONNE BROWN MD May 20, 2019 10:33
[2019-05-20 15:41] VITALS: BP 180/115
[2019-05-20 19:54] VITALS: BP 155/104
[2019-05-20] MEDS: DULoxetine HCL 30 MG CAPCR PO SCH (21:27)
[2019-05-21] VITALS (8 sets, daily range): BP systolic 141–166; BP diastolic 89–133
[2019-05-21 05:55] LABS: PLATELET COUNT, AUTOMATED 234 K/uL (150-450)
[2019-05-21] MEDS ORDERED: PANTOPRAZOLE SOD 40 MG TABEC PO SCH (09:00)
[2019-05-21] MEDS ORDERED: ROSUVASTATIN CALCIUM 10 MG TAB PO SCH ×2 (09:00→21:00)
[2019-05-21] MEDS: POLYETHYLENE GLYCOL 17 GM PKT PO SCH (09:00)
[2019-05-21] MEDS ORDERED: LOSARTAN POTASSIUM 50 MG TAB PO SCH ×2 (09:00→21:00)
[2019-05-21] MEDS ORDERED: GABAPENTIN 300 MG CAP PO SCH (09:00)
[2019-05-21] MEDS ORDERED: MELA10TA2 PO (09:06)
[2019-05-21] MEDS: METOPROLOL SUCC XL 50 MG TABCR 50 MG TAB.ER.24H PO SCH ×2 (09:38→21:10)
[2019-05-21] MEDS: GABAPENTIN 100 MG CAP PO SCH ×3 (09:38→21:09)
[2019-05-21] MEDS: ENOXAPARIN 40 MG/0.4ML SYR SC SCH (09:39)
[2019-05-21] MEDS ORDERED: PANTOPRAZOLE SOD 40 MG TABEC PO ONE (09:40)
--- NOTE | 2019-05-21 09:40 | Hospitalist Progress Note ---
Subjective Progress Notes Subjective She denies any complaints. She had no acute events overnight. Patient Complains of: Cardiovascular: No: Chest Pain Respiratory: No: Shortness of Breath Physical Exam Vital Signs Date Time Temp Pulse Resp B/P (MAP) Pulse Ox O2 Delivery O2 Flow Rate FiO2 05/21/19 07:02 93 Nasal Cannula 1.0 05/21/19 06:58 98.5 88 16 166/111 (129) 05/17/19 08:00 25.0 Intake and Output 05/21/19 07:03 Intake Total 730 ml Output Total 275 ml Balance 455 ml Intake Oral 730 ml Output Urine Total 275 ml # Voids 5 # Bowel Movements 1 General Appearance: Alert, Awake, No Acute Distress, Afebrile Neuro: Other (diffuse weakness, but improving per pt) Cardiovascular: Regular Rate and Rhythm Respiratory: No Respiratory Distress, Clear to Auscultation Extremities: Warm, Perfused; No Edema Psych: Alert & Oriented X3, Appropriate Mood & Affect Result Diagram: 05/21/1952605/21/19526 Assessment and Plan Problems: (1) Encephalopathy Status: Acute Assessment & Plan: She presented with acute mental status changes the day of admission. May be secondary to ingestion (marijuana and opiates are positive and reportedly took her husbands old baclofen). There does not appear to be an infectious cause. Cultures are all negative. CT was negative for acute pathology (cannot do MRI due to pacemaker). No concerns from about suicidal ideation or other ingestions. Her CSF was clear and cultures are negative. HSV PCR on CSF is negative. She was started on empiric treatment with ampicillin, ceftriaxone, vancomycin, and acyclovir. All of the antibiotics and antivirals have been discontinued. Her mental status is slowing improving since extub ation. Her strength is also improving. Speech/Swallowing is following and advanced her diet 05/20. No changes at this time. (2) Acute respiratory failure Assessment & Plan: She was intubated on 05/12 for airway protection. She was extubated on 05/17. She likely had some pulmonary congestion secondary to IVF. She did respond to a dose of Lasix yesterday. (3) Sepsis Assessment & Plan: She did have an event on 05/12 where she became febrile and her lactate was elevated. She was started on antibiotics as above. Now afebrile and WBC count is normal. Her cultures have all been negative and we have not been able to identify a source of infection. All antimicrobials have been discontinued. (4) Anemia Status: Acute Assessment & Plan: Her hgb has been low, but stable. MCV is elevated. Likely, there is a dilutional and acute illness component. B12/folate/iron/ferritin/reticulocyte count studies are unremarkable. (5) Nausea & vomiting Status: Acute Assessment & Plan: Resolved. (6) Chronic pain Status: Chronic Assessment & Plan: Reportedly recently stopped opiate pain medications. She has been on chronic gabapentin (100mg TID), Cymbalta and muscle relaxant (Zanaflex). Gabapentin and Cymbalta restarted. She does have cervical/thoracic spine stimulator in place. (7) Autonomic dysfunction *Optional Permanent Comment*: Syncopal episodes Last Edited By: Sarah Voss MD on February 22, 2018 15:16 Status: Chronic Assessment & Plan: The underlying etiology has not been determined. She has been evaluated at [facility]. (8) Chronic kidney disease (CKD) stage G3a/A1, moderately decreased glomerular filtration rate (GFR) between 45-59 mL/min/1.73 square meter and albuminuria creatinine ratio less than 30 mg/g Assessment & Plan: Creatinine is normal at 0.8. Exam Sepsis Risk: No Definite Risk SOFIA HENSLEY [employer] DEPOSIT CLERK May 21, 2019 09:40
[2019-05-21] MEDS: ACETAMINOPHEN 325 MG TAB PO PRN ×2 (11:53→21:09)
[2019-05-21] MEDS ORDERED: MELATONIN 3 MG TAB PO SCH (21:00)
[2019-05-21] MEDS: DULoxetine HCL 30 MG CAPCR PO SCH (21:10)
[2019-05-22 02:46] VITALS: BP 146/93
[2019-05-22] MEDS: ACETAMINOPHEN 325 MG TAB PO PRN (04:22)
[2019-05-22 07:06] VITALS: BP 154/93
[2019-05-22] MEDS ORDERED: PANTOPRAZOLE SOD 40 MG TABEC PO SCH (09:00)
[2019-05-22] MEDS: POLYETHYLENE GLYCOL 17 GM PKT PO SCH (09:00)
[2019-05-22] MEDS: GABAPENTIN 100 MG CAP PO SCH (09:21)
[2019-05-22] MEDS: METOPROLOL SUCC XL 50 MG TABCR 50 MG TAB.ER.24H PO SCH (09:21)
[2019-05-22] MEDS ORDERED: ACET-2007 PO (10:03)
--- NOTE | 2019-05-22 10:19 | Hospitalist Depart ---
Discharge Summary Reason for Hosp/Final Diag: (1) Encephalopathy Status: Acute Hospital Course & Plan: She presented with acute mental status changes the day of admission. May be secondary to ingestion (marijuana and opiates are positive and reportedly took her husbands old baclofen). There does not appear to be an infectious cause. Cultures are all negative. CT was negative for acute pathology (cannot do MRI due to pacemaker). No concerns from about suicidal ideation or other ingestions. Her CSF was clear and cultures are negative. HSV PCR on CSF is negative. She was started on empiric treatment with ampicillin, ceftriaxone, vancomycin, and acyclovir. All of the antibiotics and antivirals have been discontinued. Her mental status is slowing improving since extubation. Her strength is also improving. Speech/Swallowing is following and advanced her diet 05/20. PT re-evaluated her on 05/22 and has cleared her to discharge with no acute rehab or home health needs. (2) Acute respiratory failure Hospital Course & Plan: She was intubated on 05/12 for airway protection. She was extubated on 05/17. She likely had some pulmonary congestion secondary to IVF. She responded to Lasix. She has had no need for any further Lasix since 05/19. (3) Sepsis Hospital Course & Plan: She did have an event on 05/12 where she became febrile and her lactate was elevated. She was started on antibiotics as above. Now afebrile and WBC count is normal. Her cultures have all been negative and we have not been able to identify a source of infection. All antimicrobials have been discontinued. (4) Anemia Status: Acute Hospital Course & Plan: Her hgb has been low, but stable. MCV is elevated. Likely, there is a dilutional and acute illness component. B12/folat e/iron/ferritin/reticulocyte count studies are unremarkable. (5) Nausea & vomiting Status: Acute Hospital Course & Plan: Resolved. (6) Chronic pain Status: Chronic Hospital Course & Plan: Reportedly recently stopped opiate pain medications. She has been on chronic gabapentin (100mg TID), Cymbalta and muscle relaxant (Zanaflex). Gabapentin and Cymbalta restarted. She does have cervical/thoracic spine stimulator in place. She will continue off of the Zanaflex. (7) Autonomic dysfunction *Optional Permanent Comment*: Syncopal episodes Last Edited By: Sarah Salgado MD on February 22, 2018 15:16 Status: Chronic Hospital Course & Plan: The underlying etiology has not been determined. She has been evaluated at [facility]. (8) Chronic kidney disease (CKD) stage G3a/A1, moderately decreased glomerular filtration rate (GFR) between 45-59 mL/min/1.73 square meter and albuminuria creatinine ratio less than 30 mg/g Hospital Course & Plan: Creatinine is normal at 0.8. Departure Weight (Pounds): 168 Weight (Ounces): 4.0 Result Diagram: 05/21/1952605/21/19526 Condition: Improved Discharge: Home, Self Care Discharge Instructions Home Meds Active Scripts Acetaminophen (MAPAP) 325 Mg Tablet, 650 MG PO Q6H PRN for FEVER/PAIN, #30 TAB Prov:JUVE DIAZ 05/22/19 Rosuvastatin Calcium (Rosuvastatin Calcium) 10 Mg Tablet, 1 TAB PO DAILY, #30 TAB 11 Refills Prov:SARAH SALGADO MD 05/10/18 Reported Medications Melatonin (MELATONIN) 10 Mg Tablet, 10 MG PO QHS 05/21/19 Losartan Potassium (LOSARTAN POTASSIUM) 25 Mg Tablet, 25 MG PO QHS 11/09/18 Diphenhydramine Hcl (BENADRYL ALLERGY) 25 Mg Tablet, 25 MG PO Q4H PRN for PRN, TAB 02/22/18 Spironolactone (SPIRONOLACTONE) 25 Mg Tablet, 25 MG PO QODAY, TAB 02/22/18 Metoprolol Succinate (METOPROLOL SUCCINATE) 50 Mg Tab.er.24h, 1 TAB PO BID, TAB 02/22/18 Duloxetine HCl (Duloxetine HCl) 60 Mg Capsule.dr, 1 CAP PO DAILY 02/22/18 Pantoprazole Sod (Protonix) 40 Mg Tabec, 40 MG PO DAILY, 0 Refills 10/10/08 Tizanidine Hcl (Zanaflex) 4 Mg Tab, 2 TAB PO QID 1 TAKE 4 TIMES DAILY NEEDED FOR MUSCLE SPASM 05/12/08 Discontinued Reported Medications Gabapentin (GABAPENTIN) 300 Mg Capsule, 300 MG PO TID, CAPSULE 02/22/18 Diet: Regular Activity: As Tolerated Special Instructions: Follow up with your PCP in 1 to 2 weeks for review of hospitalization and continued management of you chronic conditions. Do not take any Zanaflex. Do not take any additional Tylenol or any Tylenol containing medications, other than what you have been prescribed. Please refrain from taking any medications/herbs that have not been prescribed to you. Continue with your previously prescribed physical therapy. Copies to: SARAH SALGADO MD ; Venous Thromboembolism Antithrombotics Is Pt On Any Antithrombotics?: No JUVE DIAZ May 22, 2019 10:18
== END 2019-05-22 10:40 | disposition home or self-care (01) | DRG 91 ==
LOC: ER 15:43 → MED 17:57 → ICU 05-12 18:57 → MED 05-19 09:15
PROVIDERS: ADMIT Internal Medicine; ATTEND Internal Medicine
PROC: 009U3ZX Drainage of Spinal Canal, Percutaneous Approach, Diagnostic (ICD-10-PCS; 2019-05-11)
PROC: 02HV33Z Insertion of Infusion Device into Superior Vena Cava, Percutaneous Approach (ICD-10-PCS; 2019-05-12)
PROC: 5A1955Z Respiratory Ventilation, Greater than 96 Consecutive Hours (ICD-10-PCS; principal; 2019-05-13)
PROC: 0BH17EZ Insertion of Endotracheal Airway into Trachea, Via Natural or Artificial Opening (ICD-10-PCS; 2019-05-13)
DX: G92 Toxic encephalopathy (principal); J96.00 Acute respiratory failure, unspecified whether with hypoxia or hypercapnia; A41.9 Sepsis, unspecified organism; T42.8X2A Poisoning by antiparkinsonism drugs and other central muscle-tone depressants, intentional self-harm, initial encounter; G89.29 Other chronic pain; I12.9 Hypertensive chronic kidney disease with stage 1 through stage 4 chronic kidney disease, or unspecified chronic kidney disease; N18.3 Chronic kidney disease, stage 3 (moderate); E78.5 Hyperlipidemia, unspecified; R40.2424 Glasgow coma scale score 9-12, 24 hours or more after hospital admission; I10 Essential (primary) hypertension; G47.30 Sleep apnea, unspecified; E21.3 Hyperparathyroidism, unspecified; D64.9 Anemia, unspecified; T40.7X1A Poisoning by cannabis (derivatives), accidental (unintentional), initial encounter; T40.601A Poisoning by unspecified narcotics, accidental (unintentional), initial encounter; Z90.710 Acquired absence of both cervix and uterus; Z88.8 Allergy status to other drugs, medicaments and biological substances; Z95.0 Presence of cardiac pacemaker; Z96.89 Presence of other specified functional implants
CPT/HCPCS: 36415; 36416; 36600; 70450; 71045; 72125; 74018; 74178; 80202; 80305; 80320; 80329; 81001; 82040; 82140; 82247; 82274; 82310; 82374; 82435; 82550; 82565; 82607; 82728; 82746; 82803; 82945; 82947; 82948; 83540; 83550; 83605; 83735; 83930; 84075; 84132; 84155; 84157; 84295; 84443; 84450; 84460; 84484; 84520; 85025; 85045; 85610; 87040; 87070; 87205; 87327; 87529; 89050; 93005; 94002; 94003; 94770; 96361; 96372; 96374; 96376; 97162; 97167; 99285; A4216; C1758; C9113; J0131; J0133; J0290; J0330; J0610; J0696; J1335; J1650; J1940; J2060; J2250; J2704; J3370; J3480; J3490; J7030; J7040; J7050; Q9967

== ENCOUNTER → 2019-05-11 | Outpatient (CLI) | payer MEDICARE ==
[~2019-05-11] MED LIST changes: +ACET-2007 PO; +MELA10TA2 PO
== END ==
LOC: AMB 15:28
PROVIDERS: ATTEND Nurse Practitioner
DX: R40.4 Transient alteration of awareness (principal); R10.9 Unspecified abdominal pain; F41.9 Anxiety disorder, unspecified
CPT/HCPCS: A0425; A0429